=== PATIENT | male | born 1955 | race Caucasian/White ===

== ENCOUNTER → 2016-07-21 | Outpatient (CLI) | payer OTHER ==
[2016-02-01 14:25] VITALS: BP 134/88
[~2016-07-21] MED LIST: AMIO200T2 PO; AMLO5TAB2 PO; APIX5TAB PO; ASPI-482 PO; ASPI325T70 PO; ATOR20TA58 PO; CONTRAST GIVEN MC PRN; DILT240C2 PO; DILT240C32 PO; DOXY100T PO; FLEC100T PO; IOHEXOL 240 MG/ML 50ML VIAL. PO ONE; IOHEXOL 300 MG/ML 75 ML VIAL IV ONE; SOTA80TA PO
--- NOTE | 2016-07-21 08:31 | RAD ---
CT of the abdomen and pelvis with contrast, 07/21/2016: History: Right lower quadrant/groin pain Multidetector CT imaging was performed following oral and IV administration of contrast. No hepatic abnormality is detected. The gallbladder is unremarkable. The pancreas shows no abnormality. The spleen is of normal size. It contains calcified granulomata. No renal or adrenal abnormality is detected. There is minimal aortoiliac calcific plaquing without evidence of aneurysm. No abdominal or pelvic adenopathy is seen. There are surgical sutures related to the distal sigmoid colon. The bowel loops are not dilated. A portion of the appendix is visualized and it is unremarkable. No pericecal inflammatory process is seen. No free fluid or free air is evident in the abdomen or pelvis. There is a tiny anterior abdominal wall fascial defect at the midline just superior to the level of the umbilicus containing only fat. There has been a previous lower lumbar spinal fusion with instrumentation from L4 through S1. There has been previous surgery at the left hip with a surgical plate and screws related to the iliac bone in the supra-acetabular region. IMPRESSION: No acute abdominal abnormality is detected.
== END | disposition home or self-care (01) ==
LOC: CT 06:57
PROVIDERS: ATTEND Surgery
DX: R10.30 Lower abdominal pain, unspecified (principal); Z98.1 Arthrodesis status
CPT/HCPCS: 74177; Q9966; Q9967

== ENCOUNTER → 2017-01-12 | Outpatient (CLI) | payer OTHER ==
[2016-02-01 14:25] VITALS: BP 134/88
[~2017-01-12] MED LIST changes: -CONTRAST GIVEN MC PRN; -IOHEXOL 240 MG/ML 50ML VIAL. PO ONE; -IOHEXOL 300 MG/ML 75 ML VIAL IV ONE; -SOTA80TA PO; +SOTA80TA48 PO
--- NOTE | 2017-01-12 14:10 | KCIC ---
CT of the left shoulder without contrast. Indication: Pain and limited range of motion.. Technique: Contiguous axial images are obtained through the . Multiplanar reformatted images are also obtained. Comparison study: None available. Findings: No evidence of acute fracture or aggressive bone destruction. Primary osteoarthritis at the acromioclavicular joint with small to moderate undersurface osteophyte. Small subacromial spur. There is enthesophyte formation at the greater tuberosity likely due to chronic rotator cuff arthropathy. No definite soft tissue abnormality. The visualized left lung appears clear. IMPRESSION: 1. Acromioclavicular joint primary osteoarthritis. 2. No acute findings.. Electronically signed by: Abdiel Alba MD (01/12/2017 2:07 PM) [facility]
== END | disposition home or self-care (01) ==
LOC: KCIC CT 12:22
PROVIDERS: ATTEND General Practice
DX: M19.012 Primary osteoarthritis, left shoulder (principal)
CPT/HCPCS: 73200

== ENCOUNTER 2017-01-28 05:55 | Emergency (ER) | payer OTHER ==
[~2017-01-28] VITALS: Ht 190.5 cm; Wt 115.7 kg
[2017-01-28] MEDS ORDERED: BACI28.34 TP (06:24)
--- NOTE | 2017-01-28 06:24 | PHYS DOC ---
Past Medical History Past Medical History: A-Fib, High Cholesterol, Hypertension Past Surgical History: No Surgical History Additional Past Surgical Histo: denies Alcohol Use: Occasionally Drug Use: None Adult General Chief Complaint Chief Complaint: THUMB HPI HPI Patient is a pleasant 61-year-old male history of hypertension, hypercholesterolemia, chronic atrial fibrillation and pacemaker placement who fell from a standing position while at work tripping on a cord. He landed on something sharp injuring his left thumb. On the dorsum of his hand he suffered a stable laceration with some mild bleeding still continued despite direct pressure. Patient denies the major pain in his thumb other than a dull ache to of 10 no numbness and tingling, no foreign body sensation, no problems with range of motion. Patient is right-hand dominant and the injury occurred about 20 minutes prior to arrival. Patient tetanus shot is not up-to-date. Review of Systems Review of Systems Constitutional: Denies fever or chills [] Eyes: Denies change in visual acuity, redness, or eye pain [] HENT: Denies nasal congestion or sore throat [] Respiratory: Denies cough or shortness of breath [] Cardiovascular: No additional information not addressed in HPI [] GI: Denies abdominal pain, nausea, vomiting, bloody stools or diarrhea [] : Denies dysuria or hematuria [] Musculoskeletal: Complains primarily of right thumb pain Integument: Denies rash or skin lesions [] Neurologic: Denies headache, focal weakness or sensory changes [] Current Medications Current Medications Current Medications Medications (Trade) Dose Ordered Sig/Dani Start Time Stop Time Status Last Admin Dose Admin Diphtheria/ Tetanus/Acell Pertussis (Boostrix) 0.5 ml ONCE ONCE 01/28/17 06:30 01/28/17 06:31 DC 01/28/17 06:39 0.5 ML Lidocaine HCl 20 ml 1X ONCE 01/28/17 06:30 01/28/17 06:31 DC 01/28/17 06:30 20 ML Allergies Allergies Allergies Coded Allergies Type Severity Reaction Last Updated Verified No Known Drug Allergies 10/30/15 No Physical Exam Physical Exam Vital signs recorded at this time within normal limits blood pressure is elevated. Constitutional: Well developed, well nourished, no acute distress, non-toxic appearance. [] HENT: Normocephalic, atraumatic, bilateral external ears normal, oropharynx moist, no oral exudates, nose normal. [] Eyes: PERRLA, EOMI, conjunctiva normal, no discharge. [] Cardiovascular:Heart rate regular rhythm, no murmur [] Lungs & Thorax: Bilateral breath sounds clear to auscultation [] Skin: Warm, dry, no erythema, no rash. [] Patient demonstrates a small stated laceration measuring was admitted about 0.5 cm in a crisscross X-shaped on the dorsum of the distal phalanx of the right thumb. There is no active foreign body noted through full range of motion no weakness to extension and flexion at the PIP or MCP of that thumb. Extremities: No tenderness, no cyanosis, no clubbing, ROM intact, no edema. [] Neurologic: Alert and oriented X 3, normal motor function, normal sensory function, no focal deficits noted. [] Current Patient Data Vital Signs Vital Signs Date Time Temp Pulse Resp B/P (MAP) Pulse Ox O2 Delivery O2 Flow Rate FiO2 01/28/17 06:09 97.5 70 18 97 Room Air 97.5 EKG EKG [] Radiology/Procedures Radiology/Procedures [] Course & Med Decision Making Course & Med Decision Making Pertinent Labs and Imaging studies reviewed. (See chart for details) Plan is x-ray the hand shows no foreign body in the thumb. Update his tetanus shot and then repaired the laceration if there is no foreign body with Ethilon suture. Procedure note: Right thumb laceration Edna nature measuring a total of 1.6 cm. Patient has a T-shaped laceration to the dorsum of the thumb measuring over a length of 1.6 cm. Verbal consent was given by family at the bedside. Patient had his wound dressed initially with a gauze was removed. Bleeding was well- controlled. Patient had 3 mL of 2% lidocaine placed with in the wound itself. Patient had 250 mL of normal saline wash to the wound. Patient's wound was then dressed Hibiclens. Patient then had x-ray done of his hand to ensure no foreign body noted. At that point patient had his laceration repaired with 4-0 silk thread. He had 12 interrupted sutures placed to help reduce the tension of the wound as the wound edges were everted. We had mild wound debridement and relatively decent alignment of the wound edges. Patient had minimal bleeding tolerated the procedure well. Patient is no foreign body sensation and range of motion and strength are intact. Patient had the wound dressed with bacitracin ointment and the dressed with tube gauze. Patient was given a discharge instructions along with reasons to return. X-ray of the hand [address] Quick. Of the right hand demonstrates no foreign body no fracture. [] Dragon Disclaimer Dragon Disclaimer This electronic medical record was generated, in whole or in part, using a voice recognition dictation system. Departure Departure Impression: Primary Impression: Laceration of thumb Disposition: 01 HOME, SELF-CARE Condition: STABLE Referrals: RYLAND VARGAS DO (PCP) Patient Instructions: Laceration Care, Adult Additional Instructions: Please return for any increasing pain, bleeding has not stopped despite wound management, if you have any questions or concerns, or signs of infection around the wound. Please follow-up your primary care doctor in 14 days and the sutures removed. Scripts Bacitracin/Polymyxin B Sulfate (POLYSPORIN TOPICAL OINT) 28.3 Gm Oint...g. 1 DONALD TP TID for WOUND CARE, #1 TUBE DIRECTED BY PHYSICIAN Prov: USMAN QUICK MD 01/28/17 USMAN QUICK MD Jan 28, 2017 06:24
[2017-01-28] MEDS ORDERED: DIPHTH,PERTUSS(ACELL),TET TOX 0.5 ML DISP.SYRIN. VAX IM ONE (06:30)
[2017-01-28] MEDS ORDERED: LIDOCAINE 2% 20 ML VIAL. IJ ONE (06:30)
--- NOTE | 2017-01-28 07:29 | RAD ---
Indication laceration to the thumb. AP oblique and lateral views of the right hand were obtained. No acute bony abnormality is seen. There are some mild degenerative changes involving the hand. IMPRESSION: No acute bony finding
[2017-01-28 07:30] VITALS: BP 112/70
[2017-01-28] MEDS ORDERED: BACITRACIN TOPICAL OINT 14GM TUBE. TP ONE (07:45)
== END 2017-01-28 07:33 | disposition home or self-care (01) ==
LOC: ER 05:55
DX: S61.011A Laceration without foreign body of right thumb without damage to nail, initial encounter (principal); I48.2 Chronic atrial fibrillation; I10 Essential (primary) hypertension; E78.00 Pure hypercholesterolemia, unspecified; Z95.0 Presence of cardiac pacemaker; W01.0XXA Fall on same level from slipping, tripping and stumbling without subsequent striking against object, initial encounter; Y93.89 Activity, other specified; Y99.8 Other external cause status; Y92.89 Other specified places as the place of occurrence of the external cause
CPT/HCPCS: 12001; 73130; 90471; 90715; 99284-25; J2001

== ENCOUNTER → 2017-02-02 | Outpatient (CLI) | payer OTHER ==
[2017-01-28 07:30] VITALS: BP 112/70
[~2017-02-02] MED LIST changes: +BACI28.34 TP
--- NOTE | 2017-02-02 10:25 | RAD ---
APPROVED REPORT Patient Location: OUT-PATIENT Laterality:Bilateral Indications Dizziness and Vertigo Doppler Spectral Velocity Analysis Right Left pCCA 74/23 cm/spCCA 91/30 cm/s mCCA 75/26 cm/smCCA 71/25 cm/s dCCA 74/27 cm/sdCCA 69/26 cm/s Bulb 55/18 cm/sBulb 44/17 cm/s ECA 66/ cm/sECA 79/ cm/s pICA 54/26 cm/spICA 37/17 cm/s Su 63/24 cm/smICA 61/26 cm/s dICA 63/32 cm/sdICA 56/26 cm/s Vert. 41/ cm/sVert. 28/ cm/s Subcl. 85/ cm/sSubcl. 68/ cm/s ICA/CCA 0.84ICA/CCA 0.67 Findings Devlin scale images of the bilateral common carotid, internal carotid and external carotid arterial sys tems reveal minimal atherosclerotic plaque in a circumferential manner. Spectral waveforms and color Doppler bilaterally revealed normal velocities and color flow. No significant velocity acceleration i s noted. Normal ICA to CCA ratios are noted. Normal antegrade vertebral velocities. Critical Notification Critical Value: No <Conclusion> No significant bilateral carotid arterial disease.
--- NOTE | 2017-02-02 12:45 | CARD ---
APPROVED REPORT EXAM: Two-dimensional and M-mode echocardiogram with Doppler and color Doppler. Other Information Quality : Average Rhythm : NSR INDICATION Dizziness and Vertigo 2D DIMENSIONS Left Atrium(2D)3.6 (1.6-4.0cm)IVSd1.6 (0.7-1.1cm) Aortic Root(2D)3.6 (2.0-3.7cm)LVDd4.9 (3.9-5.9cm) LVOT Diameter2.7 (1.8-2.4cm)PWd1.6 (0.7-1.1cm) LVDs3.7 (2.5-4.0cm)FS (%) 25.5 % SV57.6 mlLVEF(%)50.1 (>50%) Aortic Valve AoV Peak Toy.87.6cm/sAoV VTI14.8cm AO Peak GR.3.1mmHgLVOT Peak Toy.88.1cm/s AO Mean GR.2mmHgAVA (VMAX)5.64cm2 Mitral Valve MV E Zyhcafsa31.1cm/sMV DECEL XVSF589ys MV A Mfcohhod85.3cm/sMV WWW73mu E/A Ratio0.8MV A Ryncnetg169gf MVA (PHT)3.86cm2 Tricuspid Valve TR P. Dlqmmjjg061by/sRAP RGVASWCN5hiZi TR Peak Gr.85upDrEONW86drFn LEFT VENTRICLE The Left Ventricle is borderline dilated. There is mild concentric left ventricular hypertrophy. Left ventricle systolic function is low normal. The Ejection Fraction is estimated at 50%. Tissue Doppler imaging reveals mild left ventricular diastolic dysfunction. Transmitral Doppler flow pattern is Gra de I-abnormal relaxation pattern. There is no ventricular septal defect visualized. RIGHT VENTRICLE The right ventricle is normal size. The right ventricular systolic function is normal. ATRIA The left atrium size is normal. The right atrium size is normal. The interatrial septum is intact wit h no evidence for an atrial septal defect or patent foramen ovale as noted on 2-D or Doppler imaging. AORTIC VALVE The aortic valve is normal in structure and function. The aortic valve is trileaflet. Doppler and Col or Flow revealed no significant aortic regurgitation. There is no significant aortic valvular stenosi s. MITRAL VALVE The mitral valve is normal in structure and function. There is no mitral valve stenosis. Doppler and Color Flow revealed trace mitral regurgitation. TRICUSPID VALVE The tricuspid valve is normal in structure and function. Doppler and Color Flow revealed trace tricus pid regurgitation. The PA pressure was estimated at 21 mmHg. There is no tricuspid valve stenosis. PULMONIC VALVE The pulmonic valve is not well visualized. Doppler and Color Flow revealed no pulmonic valvular regur gitation. There is no pulmonic valvular stenosis. GREAT VESSELS The aortic root is normal in size. The ascending aorta is mildly dilated. Measuring 3.8cm. Pulmonary vein flow not well visualized. The IVC is normal in size and collapses >50% with inspiration. PERICARDIAL EFFUSION There is no evidence of significant pericardial effusion. Critical Notification Critical Value: No <Conclusion> The Left Ventricle is borderline dilated. Left ventricle systolic function is low normal. The Ejection Fraction is estimated at 50%. There is mild concentric left ventricular hypertrophy. There is no significant aortic valvular stenosis. Doppler and Color Flow revealed trace mitral regurgitation. Doppler and Color Flow revealed trace tricuspid regurgitation. The PA pressure was estimated at 21 mmHg. The ascending aorta is mildly dilated. Measuring 3.8cm.
== END | disposition home or self-care (01) ==
LOC: US 06:53
PROVIDERS: ATTEND Internal Medicine Cardiovascular Disease
DX: I08.1 Rheumatic disorders of both mitral and tricuspid valves (principal); R42 Dizziness and giddiness
CPT/HCPCS: 93306; 93880

== ENCOUNTER → 2017-10-05 | Outpatient (CLI) | payer OTHER ==
[2017-10-05] MEDS: GADOBUTROL 10 MMOL/10 ML VIAL IV (09:45)
== END | disposition home or self-care (01) ==
LOC: MRI 08:32
DX: M25.78 Osteophyte, vertebrae (principal); M48.061 Spinal stenosis, lumbar region without neurogenic claudication; I10 Essential (primary) hypertension; E78.00 Pure hypercholesterolemia, unspecified
CPT/HCPCS: 72158; A9585

== ENCOUNTER → 2017-10-15 | Outpatient (CLI) | payer OTHER | END | disposition home or self-care (01) | LOC: NM 09:17 | DX: S34.11 Complete lesion of lumbar spinal cord (principal); I10 Essential (primary) hypertension; E78.5 Hyperlipidemia, unspecified; E78.00 Pure hypercholesterolemia, unspecified; X58.XXXD Exposure to other specified factors, subsequent encounter | CPT/HCPCS: 78306; 96374; A9503 ==

== ENCOUNTER → 2017-11-23 | Outpatient (CLI) | payer OTHER ==
[2017-11-23] MEDS: LIDOCAINE WITH 8.4% SOD BICARB 3 ML DISP.SYRIN. INJ (09:15)
[2017-11-23] MEDS: IOHEXOL 180 MG/ML 10 ML VIAL. EPI (09:15)
== END | disposition home or self-care (01) ==
LOC: RAD 09:14
DX: M54.16 Radiculopathy, lumbar region (principal); Z98.1 Arthrodesis status
CPT/HCPCS: 72132; 72265; Q9965

== ENCOUNTER → 2017-11-26 | Outpatient (CLI) | payer OTHER ==
[~2017-11-26] MED LIST changes: -AMIO200T2 PO; -AMLO5TAB2 PO; -APIX5TAB PO; -ASPI-482 PO; -ASPI325T70 PO; -ATOR20TA58 PO; -BACI28.34 TP; -DILT240C2 PO; -DILT240C32 PO; -DOXY100T PO; -FLEC100T PO; +IOHEXOL 180 MG/ML 10 ML VIAL.; +LIDOCAINE 1% PF 2 ML VIAL.; -SOTA80TA48 PO; +methylPREDNISolone ACETATE 40 MG/ML VIAL.; +methylPREDNISolone ACETATE 80 MG/ML VIAL.
== END | disposition home or self-care (01) ==
LOC: PNCL 08:10
DX: M51.16 Intervertebral disc disorders with radiculopathy, lumbar region (principal); M96.1 Postlaminectomy syndrome, not elsewhere classified; I10 Essential (primary) hypertension; E78.00 Pure hypercholesterolemia, unspecified; M19.90 Unspecified osteoarthritis, unspecified site; I48.91 Unspecified atrial fibrillation; Z95.0 Presence of cardiac pacemaker; Z96.642 Presence of left artificial hip joint; Z98.890 Other specified postprocedural states; Z79.82 Long term (current) use of aspirin; Z79.899 Other long term (current) drug therapy; Z82.49 Family history of ischemic heart disease and other diseases of the circulatory system; Z72.89 Other problems related to lifestyle; Z90.49 Acquired absence of other specified parts of digestive tract; I34.0 Nonrheumatic mitral (valve) insufficiency; Z79.01 Long term (current) use of anticoagulants
CPT/HCPCS: 62323; J1030; J1040; Q9965

== ENCOUNTER → 2017-12-18 | Outpatient (CLI) | payer OTHER | LOC: PNCL 07:32 | DX: M51.16 Intervertebral disc disorders with radiculopathy, lumbar region (principal); M96.1 Postlaminectomy syndrome, not elsewhere classified; E78.00 Pure hypercholesterolemia, unspecified; I48.91 Unspecified atrial fibrillation; I10 Essential (primary) hypertension; Z87.39 Personal history of other diseases of the musculoskeletal system and connective tissue; Z98.890 Other specified postprocedural states; Z95.0 Presence of cardiac pacemaker; Z72.89 Other problems related to lifestyle; Z79.82 Long term (current) use of aspirin | CPT/HCPCS: 62323; 73521; J1030; J1040; Q9965 ==

== ENCOUNTER → 2018-01-01 | Outpatient (CLI) | payer OTHER ==
[~2018-01-01] MED LIST changes: +BUPIVACAINE MPF 0.25% 10 ML VIAL.; -methylPREDNISolone ACETATE 40 MG/ML VIAL.
== END | disposition home or self-care (01) ==
LOC: PNCL 07:35
DX: M16.12 Unilateral primary osteoarthritis, left hip (principal); M51.16 Intervertebral disc disorders with radiculopathy, lumbar region; M96.1 Postlaminectomy syndrome, not elsewhere classified; I34.0 Nonrheumatic mitral (valve) insufficiency; E78.00 Pure hypercholesterolemia, unspecified; I48.91 Unspecified atrial fibrillation; Z95.0 Presence of cardiac pacemaker; Z79.01 Long term (current) use of anticoagulants; Z90.49 Acquired absence of other specified parts of digestive tract; Z72.89 Other problems related to lifestyle; I10 Essential (primary) hypertension; Z79.82 Long term (current) use of aspirin; Z82.49 Family history of ischemic heart disease and other diseases of the circulatory system; Z87.39 Personal history of other diseases of the musculoskeletal system and connective tissue; Z96.642 Presence of left artificial hip joint; Z98.1 Arthrodesis status; Z98.890 Other specified postprocedural states
CPT/HCPCS: 20610; 77002; J1040; J3490; Q9965

== ENCOUNTER → 2018-01-25 | Outpatient (CLI) | payer OTHER ==
[2018-01-25 09:59] LABS: ADD MAN DIFF? NO
[2018-01-25 10:11] LABS: BASO % 1 % (0-3); EOS # 0.1 x10^3/uL (0.0-0.7); EOS % 3 % (0-3); HEMATOCRIT 40.8 % (39.0-53.0); HEMOGLOBIN 14.1 g/dL (13.0-17.5); LYMPH % 35 % (24-48); MEAN CORPUSCULAR HEMOGLOBIN 30 pg (25-35); MEAN CORPUSCULAR HGB CONC 35 g/dL (31-37); MEAN CORPUSCULAR VOLUME 86 fL (79-100); MONO # 0.5 x10^3/uL (0.0-1.1); MONO % 8 % (0-9); NEUT % 53 % (31-73); PLATELET COUNT 229 x10^3/uL (140-400); RED BLOOD COUNT 4.77 x10^6/uL (4.30-5.70); RED CELL DISTRIBUTION WIDTH 15.2 % (11.5-14.5); WHITE BLOOD COUNT 5.7 x10^3/uL (4.0-11.0)
[2018-01-25 10:26] LABS: ALBUMIN 3.5 g/dL (3.4-5.0); ANION GAP 9 (6-14); BLOOD UREA NITROGEN 11 mg/dL (8-26); CALCIUM 9.4 mg/dL (8.5-10.1); CARBON DIOXIDE 29 mmol/L (21-32); CHLORIDE 104 mmol/L (98-107); CREATININE 0.7 mg/dL (0.7-1.3); GFR 113.5; GLUCOSE 88 mg/dL (70-99); POTASSIUM 3.7 mmol/L (3.5-5.1); SODIUM 142 mmol/L (136-145)
[2018-01-25 10:28] LABS: INR 0.9 (0.8-1.1); PARTIAL THROMBOPLASTIN TIME 23 SEC (24-38)
[2018-01-25 11:32] LABS: SEDIMENTATION RATE 25 (0-15)
[2018-01-25 13:10] LABS: BILIRUBIN,URINE SMALL (NEG); CLARITY,URINE CLEAR; COLOR,URINE AMBER; GLUCOSE,URINE NEGATIVE (NEG); NITRITE,URINE NEGATIVE (NEG); PROTEIN,URINE NEGATIVE (NEG-TRACE); UROBILINOGEN,URINE 0.2 mg/dL (0.2 mg/dL)
[2018-01-25 13:20] LABS: SQUAMOUS EPITHELIAL CELL,UR FEW /LPF
[2018-01-25 13:21] LABS: BACTERIA,URINE FEW /HPF (0-FEW); RBC,URINE 0 /HPF (0-2); WBC,URINE OCC /HPF (0-4)
[2018-01-25 23:11] LABS: MRSA BY PCR Negative (Negative)
== END | disposition home or self-care (01) ==
LOC: SURGPAT 14:00
DX: R94.31 Abnormal electrocardiogram [ECG] [EKG] (principal); I10 Essential (primary) hypertension; E78.5 Hyperlipidemia, unspecified; Z79.899 Other long term (current) drug therapy
CPT/HCPCS: 36415; 71046; 80048; 81001; 82040; 85025; 85610; 85651; 85730; 87641; 93005

== ENCOUNTER 2018-02-08 06:01 | Inpatient (IN) | payer OTHER ==
[2018-02-08] VITALS (11 sets, daily range): BP systolic 116–146; BP diastolic 70–103
[~2018-02-08] VITALS: Ht 190.5 cm; Wt 120.2 kg
[~2018-02-08 06:01] MED LIST changes: +AMIO200T4 PO; +AMLO5TAB2 PO; +APIX5TAB PO; +ASPI-482 PO; +ASPI325T70 PO; +ATOR20TA58 PO; +BACI28.34 TP; -BUPIVACAINE MPF 0.25% 10 ML VIAL.; +CHOL200074 PO; +DILT240C2 PO; +DILT240C32 PO; +DOXY100T PO; +FLEC100T PO; +HYDROcodone/APAP 7.5/325MG 1 TAB TABLET PO PRN; -IOHEXOL 180 MG/ML 10 ML VIAL.; -LIDOCAINE 1% PF 2 ML VIAL.; +LISI10TA2 PO; +MELA3TAB2 PO; +MELOXICAM 7.5 MG TABLET PO PRN; +SOTA80TA48 PO; +TRANEXAMIC ACID 1,000 MG in IV NS 50ML -- 1ST BAG INJ ONE; -methylPREDNISolone ACETATE 80 MG/ML VIAL.
[2018-02-08] MEDS ORDERED: IV RINGERS,LACTATED 1000ML 1,000 ML IV SCH (07:00)
[2018-02-08] MEDS ORDERED: LIDOCAINE 1% PF 2 ML VIAL. ID PRN (07:00)
[2018-02-08] MEDS ORDERED: HYDROmorphone 2 MG/ML VIAL IV PRN (07:00)
[2018-02-08] MEDS ORDERED: fentaNYL PF VIAL 100 MCG/2 ML VIAL IV PRN ×3 (07:00→07:15)
[2018-02-08] MEDS ORDERED: PROCHLORPERAZINE 10 MG/2 ML VIAL. IV PRN ×2 (07:00→07:15)
[2018-02-08] MEDS ORDERED: ROCURONIUM 50 MG/5 ML VIAL. ONE (07:09)
[2018-02-08] MEDS ORDERED: PROPOFOL 20 ML IV ONE (07:09)
[2018-02-08] MEDS ORDERED: FAMOTIDINE 20 MG/2 ML VIAL ONE (07:10)
[2018-02-08] MEDS ORDERED: LIDOCAINE 2% PF Vial for OR 5 ML VIAL. ONE (07:10)
[2018-02-08] MEDS ORDERED: ONDANSETRON PF 4 MG/2 ML VIAL. ONE (07:10)
[2018-02-08] MEDS ORDERED: DEXAMETHASONE SOD PHOS 20 MG/5 ML VIAL. ONE (07:10)
[2018-02-08] MEDS ORDERED: PROCHLORPERAZINE 5 MG TABLET. PO PRN (07:15)
[2018-02-08] MEDS ORDERED: MORPHINE SULFATE 2 MG/ML VIAL. IV PRN (07:15)
[2018-02-08] MEDS ORDERED: MORPHINE SULFATE 10 MG/ML VIAL. IV PRN (07:15)
[2018-02-08] MEDS ORDERED: ACETAMINOPHEN 325 MG TABLET. PO PRN (07:15)
[2018-02-08] MEDS ORDERED: MORPHINE SULFATE 4 MG/ML VIAL. IV PRN ×2 (07:15)
[2018-02-08] MEDS ORDERED: traMADol 50 MG TABLET PO PRN ×2 (07:15)
[2018-02-08] MEDS ORDERED: diphenhydrAMINE 50 MG/ML VIAL IV PRN (07:15)
[2018-02-08] MEDS ORDERED: HYDROcodone/APAP 7.5/325MG 1 TAB TABLET PO PRN (07:15)
[2018-02-08] MEDS ORDERED: 0.9 % SODIUM CHLORIDE 10 ML DISP.SYRIN. IV PRN (07:15)
[2018-02-08] MEDS ORDERED: METOCLOPRAMIDE HCL 10 MG/2 ML VIAL. IV PRN (07:15)
[2018-02-08] MEDS ORDERED: CALCIUM CARBONATE 500 MG TAB.CHEW PO PRN (07:15)
[2018-02-08] MEDS ORDERED: DEXTROSE 50% 25 GM / 50ML DISP.SYRIN. IV PRN (07:15)
[2018-02-08] MEDS: HYDROcodone/APAP 10/325 1 TAB TABLET PO PRN ×2 (07:25→20:16)
[2018-02-08 07:55] LABS: PROTHROMBIN TIME PATIENT 13.1 SEC (11.7-14.0)
[2018-02-08] MEDS ORDERED: TRANEXAMIC ACID 1,000 MG in IV NS 50ML -- 2ND BAG INJ ONE (08:00)
[2018-02-08] MEDS ORDERED: fentaNYL PF VIAL 100 MCG/2 ML VIAL ONE ×2 (08:12→10:51)
[2018-02-08] MEDS: TV=100ml MORPHINE 5 MG, KETOROLAC 30 MG, ROPIVacaine 0.5% PF 60 ML, EPINEPH... INT ART ONE ×10 (08:48→09:35)
[2018-02-08] MEDS ORDERED: SEVOFLURANE > 120 MINUTES. IH ONE (09:20)
[2018-02-08] MEDS ORDERED: NEOSTIGMINE METHYLSULFATE 5 MG/5 ML SYRINGE. ONE (09:28)
[2018-02-08] MEDS ORDERED: GLYCOPYRROLATE 1 MG/5 ML VIAL. ONE (09:28)
[2018-02-08] MEDS ORDERED: MORPHINE SULFATE 2 MG/ML VIAL. ONE ×3 (10:31→11:34)
--- NOTE | 2018-02-08 10:35 | PDOC4 ---
Operative Note Operative Note Date of procedure: 02/08/2018 Surgeon: Desean Carver Supervisor Fish Bait Processing: Basilio Parker APRN Preoperative diagnosis: Advanced secondary, posttraumatic, left hip degenerative joint disease Postoperative diagnosis: Same Procedure performed: Left total hip arthroplasty Anesthesia: Gen. Competitions: None Blood loss: 300 mL Findings: Advanced degenerative joint disease of left hip Components inserted Tatum and nephew anthology size 12 standard offset femoral component with a +8 40 mm Oxinium femoral head and a 20 posteriorly directed elevated acetabular polyethylene liner Reason for procedure: Patient is very present 62-year-old gentleman underwent ORIF left acetabulum decades ago. He has had severe progressive pain that has failed conservative therapies including intra-articular injections, rehabilitation, anti-inflammatories and after discussion of the risks, benefits , and alternatives to the above surgery he wished to proceed. Description of procedure: Patient was greeted in the preoperative area by myself for the correct extremity was verified and marked. He was taken to the operative suite and his robotic started as he was brought back. Once in the operating room, he was transferred gently supine to the operating room table and had successful induction of a general anesthetic and secured the bed with all pressure points padded, we used our hip positioning device. Bony prominences were well-padded and we use an axillary roll. I then appreciated his leg lengths. We then proceeded to prep and drape left lower extremity and hip in our usual sterile fashion including an Ioban Nocona. I then incised skin through his prior acetabular exposure incision. I dissected subcutaneous tissue until I encountered the fascia cordell of the thigh and the gluteus mica and then incised this in line with the skin incision. He had a lot of adherent fibrotic tissue. I swept aside some of this and some of the bursal tissue posteriorly with a lap sponge to identify the piriformis and I took this down and tagged for later repair. I then incised his hip capsule which was quite adherent to his femoral neck circumferentially. I elevated this with electrocautery. We were then able to dislocate his hip after incising his hip capsule in a T-type incision. I then palpated and marked reproducible landmarks at his greater and lesser trochanters and femoral head with electrocautery and measured offset and leg length. I then palpated and marked 1 cm proximal to his lesser trochanter for an made my femoral neck cut and then delivered the femoral head from the operative field. I then inspected his acetabulum and noted the degenerative arthritis and osteophytes. I took some osteophytes down anteriorly and posteriorly. I then placed my anterior and posterior acetabular retractors. Identified his transverse acetabular ligament. I then began reaming and reamed up to a 61 which gave a good fit. I did encounter a little bit of 1 screw at this point and I used my trial acetabular shell and impacted this in position which gave an excellent fit. Therefore I elected to not remove any hardware and impacted a 62 acetabular liner into position referencing the crossbar attachment and the transverse acetabular ligament. I ensured that this fully seated. Prior to impacted my cup, I irrigated the operative field out. I then placed 2 screws into the posterior column. I then placed and seated my acetabular liner with the elevation directed posteriorly, ensuring that it fully engaged and locked in place under circumferential visual inspection. I then removed my acetabular retractors and repositioned the leg to deliver the proximal femur the operative field and used a proximal femoral elevator. I then used my gayie cutting osteotome followed by my lateralizing reamer followed by my canal finder. After this I began broaching and broached up to size 11 and impacted this into position. I then trialed various head and neck sizes and felt that he was still a little bit too short and opted to remove the 11 stem and broach and then impacted my size 12 stem into position. This gave him better leg length. I then trialed the plus form +8 and felt the +8 gave the best range of motion, stability and leg length. I then removed or dislocated the hip again and irrigated the operative field out thoroughly again. I then washed and dried the Philippe taper region and impacted my +8 Oxinium head into position and reduced the hip. No impingement, good range of motion, his leg length was improved. After this, injected my periarticular mixture in the obdulia- incisional soft tissues. I then closed capsule with simple interrupted #2 Ethibond and repaired piriformis through drill holes. I then took out my Charnley retractor and close fascia with running #2 Quill. Prior to wound closure all counts were correct 2. Inverted interrupted 2-0 Vicryl in a multilayered fashion was used for subcutaneous tissue and running 4-0 Monocryl in a subcuticular fashion was used for skin. The leg was cleansed and dried and our incisional wound vacuum was applied. Surgery was well tolerated by the patient. No competitions. At the conclusion of the surgery, he was laid supine and transferred gently supine to the hospital bed and taken to PACU in a stable and x-ray condition. Postoperative plan is admit of the joint Center where he will see DVT and antibiotic prophylaxis as well as likely IV pain medicine. He will start his rehabilitation as well. DESEAN CARVER II, MD Feb 08, 2018 10:35
[2018-02-08] MEDS: fentaNYL PF VIAL 100 MCG/2 ML VIAL IV PRN ×4 (10:36→11:12)
[2018-02-08] MEDS: MORPHINE SULFATE 2 MG/ML VIAL. IV PRN ×6 (10:47→12:02)
--- NOTE | 2018-02-08 11:30 | RAD ---
EXAM: Pelvis and left hip, 2 views HISTORY: Arthroplasty. COMPARISON: 12/18/2017 FINDINGS: A frontal view of the pelvis and frog-leg view the left hip are obtained. There is a left hip arthroplasty in expected position. There is a left acetabular internal fixation plate and screws. There is left hip soft tissue gas due to recent surgery. There is a suspected small amount of heterotopic ossification along the lateral acetabulum. There is instrumented fusion at the visualized lower lumbar levels. IMPRESSION: Left hip arthroplasty in expected position. Electronically signed by: Khushbu Patel MD (02/08/2018 11:26 AM) [facility]
[2018-02-08] MEDS: IV DEXTROSE 5 %-0.45 % NACL 1,000 ML IV SCH (12:38)
[2018-02-08] MEDS: LISINOPRIL 10 MG TABLET PO SCH (14:30)
[2018-02-08] MEDS ORDERED: WARFARIN 7.5 MG TABLET. PO ONE (16:00)
[2018-02-08] MEDS: FERROUS SULFATE 325 MG TABLET. PO SCH (16:17)
[2018-02-08] MEDS ORDERED: NON FORMULARY ITEM (Melatonin 10 MG) PO SCH (21:00)
[2018-02-08] MEDS: CELECOXIB 100 MG CAPSULE. PO SCH (21:01)
[2018-02-08] MEDS: ATORVASTATIN CALCIUM 20 MG TABLET PO SCH (21:01)
[2018-02-08] MEDS: SOTALOL 80 MG TABLET. PO SCH (21:05)
[2018-02-08] MEDS: ZOLPIDEM 5 MG TABLET. PO PRN (22:50)
[2018-02-08] MEDS: oxyCODONE/APAP 5/325 1 TAB TABLET PO PRN (23:36)
[2018-02-09] MEDS: IV DEXTROSE 5 %-0.45 % NACL 1,000 ML IV SCH (03:04)
[2018-02-09 03:15] VITALS: BP 133/81
[2018-02-09] MEDS: oxyCODONE/APAP 5/325 1 TAB TABLET PO PRN (04:02)
[2018-02-09 05:50] LABS: HEMATOCRIT 32.9 % (39.0-53.0); HEMOGLOBIN 11.5 g/dL (13.0-17.5)
[2018-02-09 05:57] LABS: PROTHROMBIN TIME PATIENT 15.4 SEC (11.7-14.0)
[2018-02-09] MEDS ORDERED: MAGNESIUM HYDROXIDE 2,400 MG/30 ML ORAL.SUSP. PO PRN (06:00)
[2018-02-09 06:20] VITALS: BP 140/89
[2018-02-09] MEDS: oxyCODONE/APAP 7.5/325 1 TAB TABLET PO PRN ×4 (07:14→20:38)
[2018-02-09] MEDS: FERROUS SULFATE 325 MG TABLET. PO SCH ×2 (07:14→16:20)
[2018-02-09] MEDS: SENNOSIDES/DOCUSATE 8.6/50MG TABLET. PO SCH (08:38)
[2018-02-09] MEDS: CHOLECALCIFEROL (VITAMIN D3) 1,000 UNIT TABLET PO SCH (08:38)
[2018-02-09] MEDS: MULTIVITAMIN with MINERAL TABLET. PO SCH (08:38)
[2018-02-09 08:39] VITALS: BP 121/79
[2018-02-09] MEDS: CELECOXIB 100 MG CAPSULE. PO SCH ×2 (08:39→20:36)
[2018-02-09] MEDS: SOTALOL 80 MG TABLET. PO SCH ×2 (08:41→20:37)
[2018-02-09] MEDS: LISINOPRIL 10 MG TABLET PO SCH (08:42)
[2018-02-09] MEDS ORDERED: LISINOPRIL 10 MG TABLET PO SCH (09:00)
--- NOTE | 2018-02-09 09:04 | DISCH ---
DISCHARGE INSTRUCTIONS Condition on Discharge Condition on Discharge: Stable Activity After Discharge Activity Instructions for Disc: Activity as tolerated Lifting Instructions after Dis: Add. restrict see below Exercise Instruction after Dis: Progress as tolerated Driving Instructions after Dis: Do not drive, Do not drive today Weight Bearing Status after Di: No restrictions, As tolerated Diet after Discharge Diet after Discharge: Cardiac, Regular Wound Incision Care Wound/Incision Care: Ice to area for comfort, Keep wound/cast CDI, Do not change dressing Checks after Discharge Checks after discharge: Check blood press - daily Contacting the DRClaire after DC Call your doctor for: Concerns you may have Follow-Up Follow up with: Roberto Carlos in 2 wks Warfarin Follow-Up Warfarin Follow UP: none needed, AMALIA Garcia II, MD Feb 09, 2018 09:04
--- NOTE | 2018-02-09 14:55 | PDOC ---
ORTHO PROGRESS NOTES Subjective His pain is tolerable. Denies any chest pain or abdominal complaints Vitals Vital Signs Date Time Temp Pulse Resp B/P (MAP) Pulse Ox O2 Delivery O2 Flow Rate FiO2 02/09/18 11:00 Room Air 02/09/18 08:42 79 121/79 02/09/18 06:20 97.9 20 94 2.0 97.9 Labs Laboratory Tests Test 02/08/18 06:30 02/09/18 04:15 Prothrombin Time 13.1 SEC (11.7-14.0) 15.4 SEC (11.7-14.0) Prothromb Time International Ratio 1.0 (0.8-1.1) 1.3 (0.8-1.1) Activated Partial Thromboplast Time 26 SEC (24-38) Hemoglobin 11.5 g/dL (13.0-17.5) Hematocrit 32.9 % (39.0-53.0) Mean Corpuscular Hemoglobin Concent 35 g/dL (31-37) Laboratory Tests Test 02/09/18 04:15 Hemoglobin 11.5 g/dL (13.0-17.5) Hematocrit 32.9 % (39.0-53.0) Mean Corpuscular Hemoglobin Concent 35 g/dL (31-37) Prothrombin Time 15.4 SEC (11.7-14.0) Prothromb Time International Ratio 1.3 (0.8-1.1) Notes He is awake and alert and sitting in a chair. Dressing is intact and dry. Normal motor and sensation are present in his left lower extremity Assessment and Plan PT and OT today. We will stop Coumadin and start Xarelto. He may be ready to go home tomorrow. AMALIA CARVER II, MD Feb 09, 2018 14:55
[2018-02-09] MEDS ORDERED: BISACODYL 10 MG SUPP.RECT. PR PRN (16:00)
[2018-02-09] MEDS: RIVAROXABAN 10 MG TABLET. PO SCH (16:20)
[2018-02-09 19:00] VITALS: BP 133/85
[2018-02-09 20:30] VITALS: BP 137/84
[2018-02-09] MEDS: ATORVASTATIN CALCIUM 20 MG TABLET PO SCH (20:36)
[2018-02-09] MEDS: ZOLPIDEM 5 MG TABLET. PO PRN (22:00)
[2018-02-10] MEDS: oxyCODONE/APAP 7.5/325 1 TAB TABLET PO PRN ×4 (03:52→15:24)
[2018-02-10 05:20] LABS: HEMATOCRIT 30.8 % (39.0-53.0); HEMOGLOBIN 10.9 g/dL (13.0-17.5)
[2018-02-10 05:23] LABS: PROTHROMBIN TIME PATIENT 25.1 SEC (11.7-14.0)
[2018-02-10 06:35] VITALS: BP 150/91
--- NOTE | 2018-02-10 07:28 | PDOC ---
ORTHO PROGRESS NOTES Subjective Patient states feeling well moving leg in bed. Post-op Day: 2 Procedure L TEJAL Vitals Vital Signs Date Time Temp Pulse Resp B/P (MAP) Pulse Ox O2 Delivery O2 Flow Rate FiO2 02/10/18 06:35 97.9 67 20 150/91 (110) 93 Room Air 97.9 Labs Laboratory Tests Test 02/09/18 04:15 02/10/18 03:00 Hemoglobin 11.5 g/dL (13.0-17.5) 10.9 g/dL (13.0-17.5) Hematocrit 32.9 % (39.0-53.0) 30.8 % (39.0-53.0) Mean Corpuscular Hemoglobin Concent 35 g/dL (31-37) 35 g/dL (31-37) Prothrombin Time 15.4 SEC (11.7-14.0) 25.1 SEC (11.7-14.0) Prothromb Time International Ratio 1.3 (0.8-1.1) 2.4 (0.8-1.1) Laboratory Tests Test 02/10/18 03:00 Hemoglobin 10.9 g/dL (13.0-17.5) Hematocrit 30.8 % (39.0-53.0) Mean Corpuscular Hemoglobin Concent 35 g/dL (31-37) Prothrombin Time 25.1 SEC (11.7-14.0) Prothromb Time International Ratio 2.4 (0.8-1.1) Assessment and Plan Continue PT per protocol diacharge planning. NAVI HERNANDEZ APRN Feb 10, 2018 07:28
[2018-02-10] MEDS: MULTIVITAMIN with MINERAL TABLET. PO SCH (08:18)
[2018-02-10] MEDS: FERROUS SULFATE 325 MG TABLET. PO SCH (08:18)
[2018-02-10] MEDS: SOTALOL 80 MG TABLET. PO SCH (08:18)
[2018-02-10] MEDS: LISINOPRIL 10 MG TABLET PO SCH (08:19)
[2018-02-10] MEDS: CELECOXIB 100 MG CAPSULE. PO SCH (08:21)
[2018-02-10] MEDS: SENNOSIDES/DOCUSATE 8.6/50MG TABLET. PO SCH (08:21)
[2018-02-10] MEDS: CHOLECALCIFEROL (VITAMIN D3) 1,000 UNIT TABLET PO SCH (08:21)
[2018-02-10] MEDS ORDERED: ANTI-COAG MONITOR BY PHARMACY. MC PRN (10:30)
[2018-02-10] MEDS ORDERED: OXYC-327 PO (13:01)
[2018-02-10] MEDS ORDERED: RIVA10TA PO (13:01)
[2018-02-10 15:00] VITALS: BP 120/78
[2018-02-10] MEDS: RIVAROXABAN 10 MG TABLET. PO SCH (15:09)
--- NOTE | 2018-02-11 09:11 | PATHOLOGY ---
[facility] Accession Number: [id number] . 01 Material submitted: . BONE LEFT HIP . 01 Clinical history: . Left hip DJD . 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 [facility]/02/10/2018 . 02 Comment: There is no evidence of malignancy. . (JPM:mml; 02/10/18) . 02 Electronically signed: . Jorge Sanders MD, Pathologist NPI- [id number] . 01 Gross description: . The specimen is received in formalin, labeled "Toi Pace JR and bone, left hip ", is a femoral head (6.0 x 6.0 x 5.3 cm) with attached neck, (2.5 cm in length by 5.5 x 3.0 cm) that consist of a smooth margin. The articular surface shows extensive eburnation with several pitted areas. Sectioning of the head reveals thinning of the articular cartilage corresponding to the eburnation. The remaining bone parenchyma is sinha-yellow and a trabeculated. Jewelry Enameler sections are submitted in A1-A2 after decalcification. (A1 = femoral head and A2 = femoral neck) ([facility]; 02/08/2018) SHS/SHS . 02 Pathologist provided ICD-10: M16.12 . 02 CPT . 404915, [id number] Performed at: 01 [facility] [address], [place] [id number] MD Sonido Escamilla MD Phone: [phone] Performed at: 02 [facility] [address], [place] [id number] MD Jorge Sanders MD Phone: [phone]
--- NOTE | 2018-02-11 14:47 | PDOC3 ---
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 He had tried and failed conservative therapies including anti-inflammatories, physical therapy, image guided injections and despite all this his left hip pain was interfering with his activities daily living. We had a discussion of the risks, benefits, alternatives to left total hip arthroplasty knee wish proceed. He tolerated surgery well and recovered well from anesthesia in the PACU. He was taken to the joint center and recovered well there. He will receive DVT prophylaxis. Postop day 1, he requested that we stop Coumadin and start Zarrella toe which we did. His hospital course was essentially uneventful. He progressed well with therapy and his pain was controlled with oral pain medicine. Normal bowel and bladder function was present at the time of discharge. Incision was clean dry and intact. Discharge Information Condition at Discharge: Stable Follow Up: Weeks Disposition/Orders: D/C to Home Scheduled Aspirin (Aspir 81) 81 Mg Tablet., 1 TAB PO DAILY08, #30 Ref 5 (Reported) LAST DOSE: 07/14/15 AM NEXT DOSE: 07/15/15 AM Entered as Reported by: JOSSUE WESLEY on 02/19/15 [id number] Last Taken: Unknown Dose on 02/01/18 Last Action: HELD on 02/08/18 0707 by MIKEL CARVER MD Atorvastatin Calcium (Atorvastatin Calcium) 20 Mg Tablet, 1 TAB PO HS, #30 Ref 5 (Reported) LAST DOSE: 07/13/15 BEDTIME NEXT DOSE: 07/14/15 BEDTIME Entered as Reported by: JOSSUE WESLEY on 02/19/15 1648 Last Action: Continued on 02/08/18706 by MIKEL CARVER MD Cholecalciferol (Vitamin D3) (Vitamin D-3) 2,000 Unit Capsule, 2,000 UNIT PO DAILY, (Reported) Entered as Reported by: COCO TUCKER on 11/26/17844 Last Action: Converted on 02/08/18706 by MIKEL CARVER MD Diltiazem Hcl (Cardizem Cd) 240 Mg Cap.er.24h, 240 MG PO DAILY for FOR HYPERTENSION, #30 Ref 0 (Reported) Entered as Reported by: JERAD TONG on 02/01/16 0821 Last Taken: Unknown Dose on 02/08/18 0500 Last Action: Continued on 706 by MIKEL CARVER MD Lisinopril (Lisinopril) 10 Mg Tablet, 1 TAB PO DAILY, #30 Ref 5 (Reported) Entered as Reported by: COCO TUCKER on 11/26/17844 Last Action: Continued on 02/08/18706 by MIKEL CARVER MD Melatonin (Melatonin) 3 Mg Tablet, 10 MG PO HS, (Reported) Entered as Reported by: COCO TUCKER on 11/26/17844 Last Action: Converted on 02/08/18706 by MIKEL CARVER MD Rivaroxaban (Xarelto) 10 Mg Tablet, 1 TAB PO DAILY, #30 (Reported) Entered as Reported by: PABLO MENENDEZ on 02/10/18 1301 Sotalol Hcl (Sotalol) 80 Mg Tablet, 120 MG PO BID, #60 Ref 3 Prescribed by: DEREK NEWELL on 04/27/15 1344 Last Taken: Unknown Dose on 02/08/18 0500 Last Action: Converted on 706 by MIKEL CARVER MD Scheduled PRN Oxycodone/Apap 7.5-325 (Percocet 7.5-325 Mg Tablet) 1 Each Tablet, 1 TAB PO PRN Q3HRS PRN for PAIN, #50 Ref 0 (Reported) Entered as Reported by: PABLO MENENDEZ on 02/10/18 1303 Patient Instructions Patient Instructions He will be discharged home, home health care has been set up. We will get him transition outpatient therapy as soon as we are able. He'll be discharged on anticoagulation. He will follow up with me in 2 weeks, sooner should a problem arise. He can weight-bear as tolerated AMALIA CARVER II, MD Feb 11, 2018 14:47
--- NOTE | 2018-02-11 14:48 | DISCH ---
DISCHARGE WITH HOME HEALTH DISCHARGE INFORMATION: Discharge Date: Feb 10, 2018 Final Diagnosis: Advanced secondary DJD of left hip Condition on Discharge: Stable HOME HEALTH: Face to Face: I certify this patient is under my care and that I, or a nurse practitioner or physician's assistant professor of biochemistry working with me, had a face to face encounter that meets the physician face to face encounter requirements with this patient on []. Medical Condition(s): S/P Joint Replacement Halfway For: Other: (blood draws) Physical Therapy For: Evalulation/Treatment Occupational Therapy For: Evaluation/Treatment Patient meets Homebound Statu: Limited distance walking POST DISCHARGE ORDERS: Activity Instructions for Disc: Activity as tolerated Weight Bearing Status after Di: Full weight bearing Wound/Incision Care: Ice to area for comfort, Keep wound elevated, Do not change dressing Other wound/incision instructi: Keep dressing dry and clean CHECKS AFTER DISCHARGE: Checks after discharge: Check blood press - daily FOLLOW-UP: Follow up with: Roberto Carlos in 2 wks Follow Up With: Dr. Carver in 10-14 days [phone] Warfarin Follow UP: none needed, Xarelto TREATMENT/EQUIPMENT ORDERS Adaptive Equipment Issued: None CERTIFICATION STATEMENT: Certification Statement: Certification Statement: Based on the above finding, I certify that this patient is confined to the home and needs intermittent assisted care, physical therapy and/or speech therapy, or continues to need occupational therapy.~ This patient is under my care, and I have initiated the establishment of the plan of care.~ This patient will be followed by myself or a community physician who will periodically review the plan of care. AMALIA CARVER II, MD Feb 11, 2018 14:48
== END 2018-02-10 15:25 | disposition home health service (06) | DRG 470 ==
LOC: OPSVCIP 06:01 → 4 SOUTHEST 12:30
PROVIDERS: ADMIT Orthopaedic Surgery Sports Medicine; ATTEND Orthopaedic Surgery Sports Medicine
PROC: 0SRB06Z Replacement of Left Hip Joint with Oxidized Zirconium on Polyethylene Synthetic Substitute, Open Approach (ICD-10-PCS; principal; 2018-02-08 07:30)
DX: M16.12 Unilateral primary osteoarthritis, left hip (principal); Z79.899 Other long term (current) drug therapy
CPT/HCPCS: 36415; 72170; 85014; 85018; 85610; 85730; 86850; 86900; 86901; 88304; 88311; A7015; C1713; J0171; J0690; J1100; J1885; J2001; J2270; J2405; J2704; J2710; J2795; J3010; J3490; J7030; J7120; S0028; 97110; 97116; 97150; 97530; 97535

== ENCOUNTER → 2018-03-30 | Outpatient (CLI) | payer OTHER ==
[~2018-03-30] MED LIST changes: -AMLO5TAB2 PO; +AMLO5TAB7 PO; -HYDROcodone/APAP 7.5/325MG 1 TAB TABLET PO PRN; +IOHEXOL 180 MG/ML 10 ML VIAL. ONE; +LIDOCAINE 2% PF 2ML VIAL. ONE; -MELOXICAM 7.5 MG TABLET PO PRN; +OXYC-327 PO; +RIVA10TA PO; -TRANEXAMIC ACID 1,000 MG in IV NS 50ML -- 1ST BAG INJ ONE; +methylPREDNISolone ACETATE 40 MG/ML VIAL. ONE; +methylPREDNISolone ACETATE 80 MG/ML VIAL. ONE
--- NOTE | 2018-03-30 11:03 | PAIN ---
DATE OF SERVICE: 03/30/2018 PROGRESS NOTE FOR PAIN CLINIC DIAGNOSES: Lumbar radiculopathy with lumbar degenerative disk disease and post-lumbar laminectomy syndrome. HISTORY OF PRESENT ILLNESS: The patient is 62-year-old male who returns for followup status post left hip joint injection. The patient has since had a hip replacement in January of this year. He reports his hips doing much better. The patient reports his chief complaint today is low back pain and right posterior gluteus and posterior thigh pain. The patient reports pain radiating across the low back into the posterior gluteus, posterior thigh, more on the right but sometimes on the left as well. He rates this as a 9 on a scale of 10 at its worst, 6 on average and 8 at its least and is a 6 today. The patient reports it is aching and shooting, becoming more noticeable since his hip has been replaced. He has been doing some rehab and has been working with walking better and doing better with activities and range of motion with his back, although is becoming more tender in the low back itself. The patient reports it can awaken him from sleep about every 4-5 hours, usually get out of bed, change positions and get back to sleep without difficulty. The patient reports no new motor or sensory deficits and no new bowel or bladder incontinence or other complaints. He reports the pain is aching and shooting in quality, again worse on the right but present bilaterally in the posterior legs. PHYSICAL EXAMINATION: VITAL SIGNS: The patient's blood pressure is 140/96, pulse 69, respirations 18, temperature 98.3 degrees Fahrenheit, height is 6 feet 3 inches and weight is 247 pounds. GENERAL: The patient is awake, alert, oriented, appropriate and very pleasant demeanor. HEENT: Head shows normocephalic and atraumatic. Extraocular movements are intact and symmetrical. Oral cavity: Mucous membranes are moist and pink. Dentition is intact. NECK: Shows anterior throat supple without palpable lymphadenopathy noted. Swallow reflex is symmetrical. CHEST: Shows normal on inspection. Breath sounds clear to auscultation bilaterally. HEART: Shows S1 and S2 clear. No murmurs auscultated. ABDOMEN: Soft, nontender and nondistended. No palpable organomegaly is noted. No rebound or guarding demonstrated. BACK: Shows spine grossly in the midline. Normal appearing thoracic kyphosis and some slight flattening of lumbar lordotic curvature. Lumbar paraspinous musculature shows symmetrical on inspection and palpation shows some moderate tenderness, only in the low lumbar distribution. Well-healed surgical scarring is again noted. No trigger points, no radiation, no asymmetry and no tenderness over the sacrum or sacroiliac regions. The patient has good rotational motion of the lumbar spine, both laterally as well as extension and flexion without difficulty. The patient's lower extremities show deep tendon reflexes at 1+ in the patellar and tendo-calcaneus tendons. Motor exam is strong with 5/5 dorsiflexion and extension, quadriceps and hamstring flexions are symmetrical. The patient shows well-healed surgical scar over the left hip, which is nontender. Peripheral pulses are 1+ posterior tibial. No peripheral edema is noted bilaterally. Options were discussed with the patient. The patient's old chart was reviewed as well as his current medication regimen updated. Current review of systems updated today as well and we will proceed with a lumbar epidural steroid injection today with fluoroscopic guidance. Risks were again discussed including, but not limited to bleeding, infection, possibility of epidural hematoma, subsequent neurologic compromise, dural puncture, headaches, spinal cord and/or nerve damage, side effects of steroid medication and poor results regarding pain control. The patient understands and wished to proceed. The patient will return to the clinic in approximately 2 weeks for followup, was counseled as to return appointment, activity level and side effects to be aware of. DIAGNOSES: Lumbar radiculopathy with lumbar degenerative disk disease and lumbar post-laminectomy syndrome. PROCEDURE: Lumbar epidural steroid injection, translaminar approach, L5-S1 level using C-arm fluoroscopic guidance under sterile prep and drape using local anesthetic. MEDICATION INJECTED: A total of 120 mg Depo-Medrol plus 10 mL of preservative-free normal saline and 2 mL of Isovue for contrast. CONDITION AT DISCHARGE: Stable. The patient tolerated the procedure well and had no complications. OFELIA FIELDS MD DR: RACHAEL/kathy JOB#: [id number] / [id number]
== END | disposition home or self-care (01) ==
LOC: PNCL 08:04
PROVIDERS: ATTEND Anesthesiology
DX: M51.16 Intervertebral disc disorders with radiculopathy, lumbar region (principal); M96.1 Postlaminectomy syndrome, not elsewhere classified
CPT/HCPCS: 62323; J1030; J1040; J2001; Q9965

== ENCOUNTER → 2018-04-26 | Outpatient (CLI) | payer OTHER ==
[~2018-04-26] MED LIST changes: -IOHEXOL 180 MG/ML 10 ML VIAL. ONE; -LIDOCAINE 2% PF 2ML VIAL. ONE; -methylPREDNISolone ACETATE 40 MG/ML VIAL. ONE; -methylPREDNISolone ACETATE 80 MG/ML VIAL. ONE
--- NOTE | 2018-04-26 11:44 | CARD ---
MR#: [id number] Date of Study: 04/26/2018 Ordering Physician: DEREK NEWELL, Referring Physician: DEREK NEWELL, Tech: Lulu Queen APPROVED REPORT EXAM: Two-dimensional and M-mode echocardiogram with Doppler and color Doppler. Other Information Quality : AverageHR: 68bpm INDICATION Atrial Fibrillation RISK FACTORS Hypertension Hyperlipidemia 2D DIMENSIONS RVDd3.8 (2.9-3.5cm)Left Atrium(2D)4.8 (1.6-4.0cm) IVSd1.0 (0.7-1.1cm)Aortic Root(2D)3.5 (2.0-3.7cm) LVDd6.1 (3.9-5.9cm)LVOT Diameter2.2 (1.8-2.4cm) PWd1.2 (0.7-1.1cm)LVDs4.1 (2.5-4.0cm) FS (%) 33.2 %SV115.3 ml Aortic Valve AoV Peak Toy.112.4cm/sAoV VTI22.2cm AO Peak GR.5.1mmHgLVOT Peak Toy.97.1cm/s LVOT VTI 18.24cmAO Mean GR.3mmHg ANA ROSA (VMAX)2.57gd9UWM (VTI)3.25cm2 Mitral Valve MV E Vzuwhwzm73.6cm/sMV DECEL BXAW142ib MV A Brcxfyug17.0cm/sMV IZS92tl E/A Ratio1.0MVA (PHT)3.31cm2 TDI E/Lateral E'5.7E/Medial E'8.2 Pulmonary Valve PV Peak Ruqlnckx94.5cm/sPV Peak Grad.4mmHg Tricuspid Valve TR P. Hvybnzhn323wa/sTR Peak Gr.18mmHg Pulmonary Vein D2 Vlxlyzxn17.3cm/sPVa fblvnmie782zuvb LEFT VENTRICLE The Left Ventricle is borderline dilated. There is borderline to mild concentric left ventricular hyp ertrophy. The left ventricular systolic function is normal and the ejection fraction is within normal range. The Ejection Fraction is 50-55%. Transmitral Doppler flow pattern is Grade II-pseudonormal fi lling dynamics. RIGHT VENTRICLE The right ventricle is normal size. There is normal right ventricular wall thickness. The right ventr icular systolic function is normal. ATRIA The left atrium size is normal. The right atrium size is normal. The interatrial septum is intact wit h no evidence for an atrial septal defect or patent foramen ovale as noted on 2-D or Doppler imaging. AORTIC VALVE The aortic valve is thickened but opens well. Doppler and Color Flow revealed no significant aortic r egurgitation. There is no significant aortic valvular stenosis. Calculated aortic valve area is 3.3 c m2 with maximum pressure gradient of 5 mmHg and mean pressure gradient of 3 mmHg. MITRAL VALVE The mitral valve is normal in structure and function. Doppler and Color-flow revealed trace mitral re gurgitation. TRICUSPID VALVE The tricuspid valve is normal in structure and function. Doppler and Color Flow revealed trace tricus pid regurgitation. PULMONIC VALVE The pulmonic valve is not well visualized. Doppler and Color Flow revealed trace pulmonic valvular re gurgitation. GREAT VESSELS The aortic root is normal in size. The IVC is normal in size and collapses >50% with inspiration. PERICARDIAL EFFUSION There is no evidence of significant pericardial effusion. Critical Notification Critical Value: No <Conclusion> The Left Ventricle is borderline dilated. The left ventricular systolic function is normal and the ejection fraction is within normal range. The Ejection Fraction is 50-55%. There is borderline to mild concentric left ventricular hypertrophy. There is no significant aortic valvular stenosis. Doppler and Color Flow revealed no significant aortic regurgitation. Doppler and Color-flow revealed trace mitral regurgitation. Doppler and Color Flow revealed trace tricuspid regurgitation. Signed by : Riccardo Bardales MD Electronically Approved : 04/26/2018 11:44:27
== END | disposition home or self-care (01) ==
LOC: ECHO 08:59
PROVIDERS: ATTEND Internal Medicine Cardiovascular Disease
DX: I48.91 Unspecified atrial fibrillation (principal); I11.9 Hypertensive heart disease without heart failure; E78.5 Hyperlipidemia, unspecified
CPT/HCPCS: 93306

== ENCOUNTER → 2018-06-07 | Outpatient (CLI) | payer OTHER ==
[~2018-06-07] MED LIST changes: -OXYC-327 PO; +OXYC1TAB19 PO
--- NOTE | 2018-06-07 14:14 | RAD ---
Right lower extremity venous doppler ultrasound Indication:elevated d dimer/rt leg pain Technique: Color Doppler, grayscale, and spectral waveform analysis is used to evaluate the right femoral and popliteal veins. Findings: No evidence of deep venous thrombosis. Normal response to augmentation, normal compressibility and normal phasicity is demonstrated. Visualized calf veins are patent. Impression: Negative for deep venous thrombosis Electronically signed by: Abdiel Alba MD (06/07/2018 2:10 PM) [facility]
== END | disposition home or self-care (01) ==
LOC: US 13:37
PROVIDERS: ATTEND Family Medicine
DX: M25.561 Pain in right knee (principal); R79.89 Other specified abnormal findings of blood chemistry
CPT/HCPCS: 93971

== ENCOUNTER → 2019-04-27 | Day surgery (SDC) | payer OTHER ==
[~2019-04-27] MED LIST changes: +AMLO5TAB10 PO; -AMLO5TAB7 PO; +BALANCED SALT IRRIG OPHTH SOLN 15 ML BOTTLE. ONE; +CHONDROIT-SOD-HYALURONATE KIT. ONE; +CHONDROITIN-SOD-HYALURONATE 0.5 ML DISP.SYRIN. ONE; +CIPROFLOXACIN 0.3% OPHTH SOLUTION 5ML BOTTLE. OD ONE; +HYDROmorphone 2 MG/ML VIAL IV PRN; +IV RINGERS,LACTATED 1000ML 1,000 ML IV SCH; +LIDOCAINE 1% PF 2 ML VIAL. ONE; +LIDOCAINE 2% JELLY 6ML IN APPLICATOR. MM SCH; -MELA3TAB2 PO; +MELA3TAB56 PO; +MELO15TA23 PO; +MIDAZOLAM HCL/PF 2 MG/2 ML VIAL. ONE; +MORPHINE SULFATE 2 MG/ML VIAL. IV PRN; +NEO/POLYMYX/DEXAMETH OPHTH OINTMENT 3.5GM TUBE. ONE; +PROCHLORPERAZINE 10 MG/2 ML VIAL. IV PRN; +PROPARACAINE 0.5% OPHTH SOLUTION 15ML BOTTLE. OD ONE; +fentaNYL PF VIAL 100 MCG/2 ML VIAL IV PRN
[2019-04-27] MEDS: CYCLOPENTOLATE 1% OPTH SOLUTION 2ML BOTTLE. OD SCH ×3 (11:08→11:22)
[2019-04-27] MEDS: PHENYLEPHRINE 10% OPHTH SOLUTION 5ML BOTTLE. OD SCH ×3 (11:08→11:22)
[2019-04-27 12:50] VITALS: BP 152/84
--- NOTE | 2019-04-27 13:06 | OP ---
DATE OF SURGERY: 04/27/2019 PREOPERATIVE DIAGNOSIS: Cataract of the right eye. PROCEDURE: Phacoemulsification with posterior chamber intraocular lens implantation of the right eye. INDICATION: Painless progressive visual loss and difficulty with visualization. SURGEON: Dr. Kirt Fajardo. ANESTHESIA: Topical with monitored anesthesia care. DESCRIPTION OF PROCEDURE: The right eye was prepped with Betadine in the usual sterile fashion and draped. A paracentesis was performed followed by instillation of 1% preservative-free phenylephrine admixed with lidocaine and balanced salt solution. Viscoelastic was injected in the anterior chamber and a temporal clear corneal incision was made. A capsulorrhexis was performed followed by hydrodissection. The phacoemulsification handpiece was used to remove the nucleus in a modified stop and chop fashion. The I/A handpiece was used to remove the remainder of the cortex. Viscoelastic was injected in the capsular bag and the Mariusz model [id number] with a power of 19.5 diopters was placed into the capsular bag. Balanced salt solution was used to hydrate the corneal wounds and the viscoelastic evacuated with the I/A handpiece. Once no leak was noted, Maxitrol was placed on the eye and the eye shielded and the patient was sent to the recovery room uneventfully. KIRT FAJARDO MD DR: KIRK/nts JOB#: [id number] / [id number]
== END ==
LOC: SURG 09:06
PROVIDERS: ATTEND Ophthalmology
DX: H26.9 Unspecified cataract (principal); Z98.890 Other specified postprocedural states; I48.91 Unspecified atrial fibrillation; I11.9 Hypertensive heart disease without heart failure; E78.00 Pure hypercholesterolemia, unspecified; K21.9 Gastro-esophageal reflux disease without esophagitis; Z95.0 Presence of cardiac pacemaker; Z87.891 Personal history of nicotine dependence; Z90.49 Acquired absence of other specified parts of digestive tract; Z96.642 Presence of left artificial hip joint; Z72.89 Other problems related to lifestyle
CPT/HCPCS: 66984; C1780; J0171; J0690; J1580; J2250

== ENCOUNTER → 2019-04-27 | Outpatient (CLI) | payer OTHER ==
[~2019-04-27] MED LIST changes: -BALANCED SALT IRRIG OPHTH SOLN 15 ML BOTTLE. ONE; -CHONDROIT-SOD-HYALURONATE KIT. ONE; -CHONDROITIN-SOD-HYALURONATE 0.5 ML DISP.SYRIN. ONE; -CIPROFLOXACIN 0.3% OPHTH SOLUTION 5ML BOTTLE. OD ONE; -HYDROmorphone 2 MG/ML VIAL IV PRN; -IV RINGERS,LACTATED 1000ML 1,000 ML IV SCH; -LIDOCAINE 1% PF 2 ML VIAL. ONE; -LIDOCAINE 2% JELLY 6ML IN APPLICATOR. MM SCH; -MIDAZOLAM HCL/PF 2 MG/2 ML VIAL. ONE; -MORPHINE SULFATE 2 MG/ML VIAL. IV PRN; -NEO/POLYMYX/DEXAMETH OPHTH OINTMENT 3.5GM TUBE. ONE; -PROCHLORPERAZINE 10 MG/2 ML VIAL. IV PRN; -PROPARACAINE 0.5% OPHTH SOLUTION 15ML BOTTLE. OD ONE; -fentaNYL PF VIAL 100 MCG/2 ML VIAL IV PRN
--- NOTE | 2019-04-27 11:03 | CARD ---
MR#: [id number] Date of Study: 04/27/2019 Ordering Physician: DEREK NEWELL, Referring Physician: DEREK NEWELL, Tech: Lulu Queen APPROVED REPORT EXAM: Two-dimensional and M-mode echocardiogram with Doppler and color Doppler. Other Information Quality : AverageHR: 81bpm Rhythm : Pacemaker INDICATION Atrial Fibrillation Surgery/Intervention Pacemaker: Date: 2016 RISK FACTORS Hypertension Hyperlipidemia 2D DIMENSIONS RVDd3.1 (2.9-3.5cm)Left Atrium(2D)5.1 (1.6-4.0cm) IVSd1.4 (0.7-1.1cm)Aortic Root(2D)3.7 (2.0-3.7cm) LVDd5.9 (3.9-5.9cm)LVOT Diameter2.5 (1.8-2.4cm) PWd1.4 (0.7-1.1cm)LVDs4.7 (2.5-4.0cm) FS (%) 20.6 %SV71.3 ml LVEF(%)41.4 (>50%) Aortic Valve AoV Peak Toy.132.8cm/sAoV VTI24.3cm AO Peak GR.7.1mmHgLVOT Peak Toy.85.1cm/s LVOT VTI 17.36cmAO Mean GR.3mmHg ANA ROSA (VMAX)2.28km8UXV (VTI)3.47cm2 Mitral Valve MV E Xezpeqme07.5cm/sMV DECEL TPYQ894vk MV A Epluadei62.4cm/sMV KTJ53ld E/A Ratio1.4MVA (PHT)4.00cm2 TDI E/Lateral E'7.2E/Medial E'13.2 Pulmonary Valve PV Peak Cwsydsen52.3cm/sPV Peak Grad.3mmHg Tricuspid Valve TR P. Ixnlxzpx132hh/sRAP HSAIJMPP8ljBo TR Peak Gr.81hwYgIZWR19ezXd Pulmonary Vein S1 Paeugxxn19.9cm/sD2 Ummhtqpo09.3cm/s PVa gbqiqhbb660rtfh LEFT VENTRICLE The Left Ventricle is borderline dilated. There is moderate concentric left ventricular hypertrophy. The left ventricular systolic function is low normal. The Ejection Fraction is 50%. There is slight g lobal hypokinesis of the left ventricle. Transmitral Doppler flow pattern is Grade II-pseudonormal fi lling dynamics. RIGHT VENTRICLE The right ventricle is borderline dilated. There is normal right ventricular wall thickness. The righ t ventricular systolic function is normal. ATRIA The left atrium is mildly dilated. The right atrium is mildly dilated. The interatrial septum is inta ct with no evidence for an atrial septal defect or patent foramen ovale as noted on 2-D or Doppler im aging. AORTIC VALVE The aortic valve is thickened but opens well. Doppler and Color Flow revealed no significant aortic r egurgitation. There is no significant aortic valvular stenosis. MITRAL VALVE The mitral valve is normal in structure and function. There is no evidence of mitral valve prolapse. There is no mitral valve stenosis. Doppler and Color-flow revealed trace to mild mitral regurgitation . TRICUSPID VALVE The tricuspid valve is normal in structure and function. Doppler and Color Flow revealed trace tricus pid regurgitation with an estimated PAP of 31 mmHg. There is no tricuspid valve stenosis. PULMONIC VALVE Doppler and Color Flow revealed no pulmonic valvular regurgitation. There is no pulmonic valvular gualberto nosis. GREAT VESSELS The aortic root is normal in size. The IVC was not well visualized. PERICARDIAL EFFUSION There is no evidence of significant pericardial effusion. Critical Notification Critical Value: No <Conclusion> The left ventricular systolic function is low normal. The Ejection Fraction is 50%. There is slight global hypokinesis of the left ventricle. Doppler and Color Flow revealed trace tricuspid regurgitation with an estimated PAP of 31 mmHg. Signed by : Jamir Campbell, Electronically Approved : 04/27/2019 11:03:09
== END | disposition home or self-care (01) ==
LOC: ECHO 09:02
PROVIDERS: ATTEND Internal Medicine Cardiovascular Disease
DX: I34.0 Nonrheumatic mitral (valve) insufficiency (principal); I11.9 Hypertensive heart disease without heart failure; I48.91 Unspecified atrial fibrillation
CPT/HCPCS: 93306

== ENCOUNTER → 2019-11-01 | Outpatient (CLI) | payer OTHER ==
[2019-04-27 12:50] VITALS: BP 152/84
[~2019-11-01] MED LIST changes: +MELA3TAB4 PO; -MELA3TAB56 PO; +REGADENOSON 0.4 MG/5 ML DISP.SYRIN. IV ONE
--- NOTE | 2019-11-01 11:10 | RAD ---
MR#: [id number] Date of Study: 11/01/2019 Ordering Physician: DEREK NEWELL Referring Physician: DAMIAN MELARA Tech: CHARMAINE Velazco APPROVED REPORT Test Type: Pharmacological Stress Nurse/Tech: CHARMAINE Velazco Test Indications: A Fib Cardiac History: Ablation 2018 Medications: see EHR Medical History: see EHR Resting ECG: Paced no arrythmias Resting Heart Rate: 71 bpm Resting Blood Pressure: 148/92mmHg Pretest Chest Pain: None Nurse/Tech Notes Consent: The procedure was explained to the patient in lay terms. Informed consent was witnessed. Fish eout was entered into Relive. History and Stress Test performed by CHARMAINE Velazco Pharm. Details Pharmacologic stress testing was performed using 0.4mg per 5ml of regadenoson given intravenously ove r 7-10 seconds. POST EXERCISE Reason for Termination: Infusion complete Max Blood Pressure: 129/80mmHg Blood Pressure response to exercise: Normal blood pressure response during stress. Chest Pain: No. INTERPRETATION Stress EKG Conclusion: A V paced rhythm at rest. V paced rhythm with exertion. Paced rhythm throughout the patient's exam. Imaging Protocol IMAGE PROTOCOL: Rest Tc-99m/stress Tc-99m 1 day Rest: Stress: Viability: Radiopharm.Tc99m IgykuwzibPf19k Sestamibi Iugq67eNn 33mCi Duration 15min. 10min. Img Date 11/01/2019 11/01/2019 Inj-Img Yrkk80jkh. 60min. Rest Admin Site:IV - Right ForearmAdministrator:RT Rebecca (R)(N) Stress Admin Site: IV - Right ForearmAdministrator: CHARMAINE Velazco STRESS DATA End Diast. Vol.191.0mlAv. Heart Rate68.0bpm End Syst. Vol.66.0mlCO Index BSA0.0L/min Myocardial Berc008.0gEject. Dwgjclei10.0% Stress Rates Pk. Fill Rate2.64EDV/secLVtime Pk. Fill 215.78msec Pk. Empty Rate3.07ESV/secLVtime Pk. Xyawd657.39msec 1/3 Pk. Fill1.05EDV/sec Stress Scores Regional WT2.00Summed WT8.00 Regional WM0.00Summed WM1.00 LV Perfusion The stress scans show slight inferior lateral wall thinning. The rest scans show slight inferior lateral wall thinning. Nuclear imaging shows no reversible ischemia. Nuclear imaging shows slight fixed thinning of the inferior lateral wall. Wall Motion Left ventricular systolic function shows no regional wall motion abnormalities with an ejection fract ion of 63%. LV Perf. Quant 17 Seg. SSS0.00 17 Seg. SRS2.00 17 Seg. SDS0.00 Stress Defect Extent (% LAD)0.00Rest Defect Extent (% LAD)0.00Rev. Defect Extent (% LAD)0.00 Stress Defect Extent (% LCX) 0.00Rest Defect Extent (% LCX)2.50Rev. Defect Extent (% LCX)0.00 Stress Defect Extent (% RCA)4.40Rest Defect Extent (% RCA)15.60Rev. Defect Extent (% RCA)0.00 Stress Defect Extent (% ANABELLA)2.00Rest Defect Extent (% ANABELLA)7.80Rev. Defect Extent (% ANABELLA)0.00 Conclusion 1. Paced rhythm. 2. Nuclear imaging shows no reversible ischemia. 3. Nuclear imaging shows slight fixed inferior lateral wall thinning. 4. Left ventricular systolic function shows no regional wall motion abnormalities and an ejection fra ction of 63%. 5. Moderately low risk Lexiscan nuclear stress test. Signed by : Riccardo Bardales MD Electronically Approved : 11/01/2019 11:09:34
== END | disposition home or self-care (01) ==
LOC: NM 07:25
PROVIDERS: ATTEND Internal Medicine Cardiovascular Disease
DX: I48.91 Unspecified atrial fibrillation (principal); I10 Essential (primary) hypertension; Z95.0 Presence of cardiac pacemaker; Z79.01 Long term (current) use of anticoagulants
CPT/HCPCS: 78452; 93017; A9500; J2785

== ENCOUNTER → 2020-04-02 | Outpatient (CLI) | payer OTHER ==
[2019-04-27 12:50] VITALS: BP 152/84
[~2020-04-02] MED LIST changes: -AMIO200T4 PO; +AMIO200T6 PO; +AMLO-186 PO; -AMLO5TAB10 PO; -REGADENOSON 0.4 MG/5 ML DISP.SYRIN. IV ONE
--- NOTE | 2020-04-02 16:09 | CARD ---
MR#: [id number] Date of Study: 04/02/2020 Ordering Physician: DEREK NEWELL, Referring Physician: DEREK NEWELL Tech: Bonnie Cam RDCS APPROVED REPORT EXAM: Two-dimensional and M-mode echocardiogram with Doppler and color Doppler. Other Information Quality : Good INDICATION Atrial Fibrillation Surgery/Intervention Pacemaker: Date: 07/13/15 2D DIMENSIONS RVDd2.6 (2.9-3.5cm)Left Atrium(2D)4.5 (1.6-4.0cm) IVSd1.8 (0.7-1.1cm)Aortic Root(2D)3.2 (2.0-3.7cm) LVDd4.8 (3.9-5.9cm)LVOT Diameter2.3 (1.8-2.4cm) PWd1.1 (0.7-1.1cm)LVDs3.5 (2.5-4.0cm) FS (%) 26.8 %SV56.6 ml LVEF(%)52.2 (>50%) Aortic Valve AoV Peak Toy.119.0cm/sAoV VTI23.3cm AO Peak GR.5.7mmHgLVOT Peak Toy.100.5cm/s LVOT VTI 19.86cmAO Mean GR.4mmHg ANA ROSA (VMAX)3.97mh0ECX (VTI)3.60cm2 Mitral Valve MV E Ggaennjy78.4cm/sMV DECEL LSLE534xn MV EKX38xnMEJ (PHT)4.30cm2 TDI E/Lateral E'6.7E/Medial E'15.4 Tricuspid Valve TR P. Zsudctqz482zt/sRAP EGFMBMJA0tyVf TR Peak Gr.57yaIpACGH87bmUx Pulmonary Vein S1 Nwqvskwp53.1cm/sD2 Supoxutc32.3cm/s LEFT VENTRICLE The left ventricle is normal size. There is mild asymmetric septal hypertrophy. Left ventricle systol ic function is low normal. The Ejection Fraction is estimated at 50-55%. There is normal LV segmental wall motion. RIGHT VENTRICLE The right ventricle is normal size. The right ventricular systolic function is normal. There are elke ce leads in the right ventricle and atrium. ATRIA The left atrium is mildly dilated. The right atrium size is normal. The interatrial septum is intact with no evidence for an atrial septal defect or patent foramen ovale as noted on 2-D or Doppler imagi ng. AORTIC VALVE The aortic valve is calcified but opens well. Doppler and Color Flow revealed no significant aortic r egurgitation. There is no significant aortic valvular stenosis. MITRAL VALVE The mitral valve is calcified but opens well. There is no evidence of mitral valve prolapse. There is no mitral valve stenosis. Doppler and Color-flow revealed trace to mild mitral regurgitation. TRICUSPID VALVE The tricuspid valve is normal in structure and function. Doppler and Color Flow revealed trace to mil d tricuspid regurgitation. The PA pressure was estimated at 33 mmHg. There is no tricuspid valve sten osis. PULMONIC VALVE The pulmonic valve is not well visualized. Doppler and Color Flow revealed no pulmonic valvular regur gitation. There is no pulmonic valvular stenosis. GREAT VESSELS The aortic root is normal in size. The ascending aorta is mildly dilated at 3.5 cm. The IVC is normal in size and collapses >50% with inspiration. PERICARDIAL EFFUSION There is no evidence of significant pericardial effusion. Critical Notification Critical Value: No <Conclusion> The left ventricle is normal size. Left ventricle systolic function is low normal. The Ejection Fraction is estimated at 50-55%. There are device leads in the right ventricle and atrium. Doppler and Color Flow revealed no significant aortic regurgitation. There is no significant aortic valvular stenosis. Doppler and Color-flow revealed trace to mild mitral regurgitation. Doppler and Color Flow revealed trace to mild tricuspid regurgitation. The PA pressure was estimated at 33 mmHg. The ascending aorta is mildly dilated at 3.5 cm. Signed by : Riccardo Bardales MD Electronically Approved : 04/02/2020 16:08:52
== END ==
LOC: ECHO 07:53
PROVIDERS: ATTEND Internal Medicine Cardiovascular Disease
DX: I08.3 Combined rheumatic disorders of mitral, aortic and tricuspid valves (principal); I48.91 Unspecified atrial fibrillation
CPT/HCPCS: 93306

== ENCOUNTER → 2020-09-11 | Outpatient (CLI) | payer OTHER ==
[2019-04-27 12:50] VITALS: BP 152/84
[~2020-09-11] MED LIST changes: +LISI10TA16 PO; -LISI10TA2 PO
[2020-09-11 10:04] LABS: BASO # 0.1 x10^3/uL (0.0-0.2); BASO % 1 % (0-3); EOS # 0.1 x10^3/uL (0.0-0.7); EOS % 1 % (0-3); HEMATOCRIT 45.3 % (39.0-53.0); LYMPH # 1.8 x10^3/uL (1.0-4.8); LYMPH % 28 % (24-48); MEAN CORPUSCULAR HEMOGLOBIN 27 pg (25-35); MEAN CORPUSCULAR HGB CONC 33 g/dL (31-37); MEAN CORPUSCULAR VOLUME 83 fL (79-100); MONO # 0.6 x10^3/uL (0.0-1.1); MONO % 9 % (0-9); NEUT # 3.9 x10^3/uL (1.8-7.7); NEUT % 61 % (31-73); PLATELET COUNT 302 x10^3/uL (140-400); RED BLOOD COUNT 5.48 x10^6/uL (4.30-5.70); RED CELL DISTRIBUTION WIDTH 14.1 % (11.5-14.5); WHITE BLOOD COUNT 6.5 x10^3/uL (4.0-11.0)
[2020-09-11 10:28] LABS: ALBUMIN 3.4 g/dL (3.4-5.0); CALCIUM 8.8 mg/dL (8.5-10.1); CHOLESTEROL/HDL RATIO 4.4; CREATININE 0.8 mg/dL (0.7-1.3); GFR 96.4; POTASSIUM 3.9 mmol/L (3.5-5.1); TOTAL BILIRUBIN 0.8 mg/dL (0.2-1.0); TOTAL PROTEIN 6.9 g/dL (6.4-8.2); URIC ACID 6.4 mg/dL (3.5-7.2)
== END ==
LOC: LAB 10:09
PROVIDERS: ATTEND Family Medicine
DX: Z12.5 Encounter for screening for malignant neoplasm of prostate (principal); Z11.59 Encounter for screening for other viral diseases; E78.5 Hyperlipidemia, unspecified; M10.9 Gout, unspecified; R53.83 Other fatigue
CPT/HCPCS: 80053; 80061; 82306; 84402; 84403; 84443; 84550; 85025; 86803; G0103

== ENCOUNTER → 2020-10-23 | Outpatient (CLI) | payer OTHER ==
[2019-04-27 12:50] VITALS: BP 152/84
--- NOTE | 2020-10-23 08:51 | EKG ---
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
[2020-10-23 09:19] LABS: BASO % 1 % (0-3); EOS # 0.1 x10^3/uL (0.0-0.7); EOS % 2 % (0-3); HEMATOCRIT 43.2 % (39.0-53.0); HEMOGLOBIN 14.7 g/dL (13.0-17.5); LYMPH # 2.3 x10^3/uL (1.0-4.8); LYMPH % 36 % (24-48); MEAN CORPUSCULAR HEMOGLOBIN 28 pg (25-35); MEAN CORPUSCULAR HGB CONC 34 g/dL (31-37); MEAN CORPUSCULAR VOLUME 83 fL (79-100); MONO # 0.5 x10^3/uL (0.0-1.1); MONO % 8 % (0-9); NEUT # 3.4 x10^3/uL (1.8-7.7); NEUT % 54 % (31-73); PLATELET COUNT 292 x10^3/uL (140-400); RED BLOOD COUNT 5.22 x10^6/uL (4.30-5.70); RED CELL DISTRIBUTION WIDTH 15.1 % (11.5-14.5); WHITE BLOOD COUNT 6.4 x10^3/uL (4.0-11.0)
[2020-10-23 09:28] LABS: PROTHROMBIN TIME PATIENT 12.8 SEC (11.7-14.0)
[2020-10-23 09:29] LABS: ALBUMIN 3.5 g/dL (3.4-5.0); CALCIUM 8.8 mg/dL (8.5-10.1); CREATININE 0.8 mg/dL (0.7-1.3); GFR 96.4; POTASSIUM 3.9 mmol/L (3.5-5.1)
--- NOTE | 2020-10-23 10:03 | RAD ---
EXAM: PA and Lateral Views of the Chest DATE: 10/23/2020 9:20 AM INDICATION: Reason: pre op -RIGHT TOTAL KNEE SCHEDULED 11/06. Instructions: / History: COMPARISON: No Prior FINDINGS: Mild cardiomegaly. Aorta is tortuous other scarring calcifications. Cardiac generator pack obscures a portion of the left chest with leads in stable position. Mediastinal and hilar contours are stable. No focal parenchymal airspace opacity. No pleural effusion or pneumothorax. IMPRESSION: 1. No radiographic evidence for acute cardiopulmonary process. Electronically signed by: Juan Grewal MD (10/23/2020 10:01 AM) [facility]
[2020-10-24 00:13] LABS: HEMOGLOBIN A1C 5.8 % (4.8-5.6)
== END ==
LOC: SURGPAT 07:59
PROVIDERS: ATTEND Orthopaedic Surgery
DX: Z01.818 Encounter for other preprocedural examination (principal); M17.11 Unilateral primary osteoarthritis, right knee; Z96.651 Presence of right artificial knee joint
CPT/HCPCS: 36415; 71046; 80048; 82040; 82306; 83036; 85025; 85610; 85651; 87641; 93005

== ENCOUNTER → 2020-11-02 | Outpatient (CLI) | payer OTHER ==
[2020-10-23 09:01] VITALS: BP 147/101
[~2020-11-02] MED LIST changes: +WARF-31 PO
== END ==
LOC: LAB 09:09
PROVIDERS: ATTEND Orthopaedic Surgery
DX: Z01.812 Encounter for preprocedural laboratory examination (principal); Z20.822 Contact with and (suspected) exposure to COVID-19; M17.11 Unilateral primary osteoarthritis, right knee
CPT/HCPCS: U0003; U0005

== ENCOUNTER 2020-11-06 07:52 | Observation (INO) | payer OTHER, MEDICARE ==
[2020-10-23 09:01] VITALS: BP 147/101
[2020-11-06] VITALS (9 sets, daily range): BP systolic 132–162; BP diastolic 84–95
[~2020-11-06] VITALS: Ht 190.5 cm; Wt 107.0 kg
[~2020-11-06 07:52] MED LIST changes: +ACETAMINOPHEN 500 MG TABLET PO PRN; +GABAPENTIN 300 MG CAPSULE. PO PRN; +IV RINGERS,LACTATED 1000ML 1,000 ML IV SCH; +MELOXICAM 7.5 MG TABLET PO PRN; +MORPHINE SULFATE 5 MG, KETOROLAC 30MG VIAL 30 MG, ROPIVacaine 0.5% PF 60 ML, EPINEPHrin... INT ART ONE; +PROCHLORPERAZINE 10 MG/2 ML VIAL. IVP PRN; +TRANEXAMIC ACID in NS IVPB 100 ML ONE; +TRANEXAMIC ACID in NS IVPB 50 ML INJ ONE; +VANCOMYCIN 1 GM VIAL. ONE; -WARF-31 PO; +fentaNYL PF VIAL 100 MCG/2 ML VIAL IVP PRN
[2020-11-06] MEDS ORDERED: TRANEXAMIC ACID in NS IVPB 50 ML INJ ONE (08:00)
[2020-11-06] MEDS ORDERED: MELO15TA23 PO (08:09)
[2020-11-06] MEDS ORDERED: WARF-31 PO (08:09)
[2020-11-06] MEDS ORDERED: PROPOFOL 10 MG/ML (20ML) VIAL. IV ONE (08:22)
[2020-11-06] MEDS ORDERED: ONDANSETRON PF 4 MG/2 ML VIAL. ONE (08:22)
[2020-11-06] MEDS ORDERED: LIDOCAINE 2% PF 5 ML VIAL. ONE (08:22)
[2020-11-06] MEDS ORDERED: DEXAMETHASONE SOD PHOS 4 MG/ML VIAL ONE (08:22)
[2020-11-06 08:47] LABS: PROTHROMBIN TIME PATIENT 13.2 SEC (11.7-14.0)
[2020-11-06] MEDS ORDERED: fentaNYL PF VIAL 100 MCG/2 ML VIAL ONE ×2 (09:16→13:09)
[2020-11-06] MEDS ORDERED: SEVOFLURANE > 120 MINUTES. IH ONE (10:52)
[2020-11-06] MEDS ORDERED: 0.9 % SODIUM CHLORIDE 10 ML DISP.SYRIN. IV PRN (11:00)
[2020-11-06] MEDS ORDERED: ZOLPIDEM 5 MG TABLET. PO PRN (11:00)
[2020-11-06] MEDS ORDERED: MORPHINE SULFATE 2 MG/ML VIAL. IVP PRN (11:00)
[2020-11-06] MEDS ORDERED: PROCHLORPERAZINE 5 MG TABLET. PO PRN (11:00)
[2020-11-06] MEDS ORDERED: DEXTROSE 50% 25 GM / 50ML DISP.SYRIN. IV PRN (11:00)
[2020-11-06] MEDS ORDERED: fentaNYL PF VIAL 100 MCG/2 ML VIAL IVP PRN (11:00)
[2020-11-06] MEDS ORDERED: IV NORMAL SALINE 1000ML BAG 1,000 ML IV SCH (11:00)
[2020-11-06] MEDS ORDERED: CALCIUM CARBONATE 500 MG TAB.CHEW PO PRN (11:00)
[2020-11-06] MEDS ORDERED: diphenhydrAMINE 50 MG/ML VIAL IVP PRN (11:00)
[2020-11-06] MEDS: ONDANSETRON ODT 4 MG TAB.RAPDIS. PO SCH ×3 (12:00→23:33)
[2020-11-06] MEDS: ONDANSETRON PF 4 MG/2 ML VIAL. IVP SCH ×3 (12:00→23:33)
[2020-11-06] MEDS ORDERED: PROCHLORPERAZINE 10 MG/2 ML VIAL. ONE (13:09)
[2020-11-06] MEDS: fentaNYL PF VIAL 100 MCG/2 ML VIAL IVP PRN ×2 (13:13→13:18)
[2020-11-06] MEDS ORDERED: MORPHINE SULFATE 2 MG/ML VIAL. ONE (13:17)
[2020-11-06] MEDS: MORPHINE SULFATE 2 MG/ML VIAL. IVP PRN ×2 (13:20→13:35)
[2020-11-06] MEDS ORDERED: HYDROmorphone 2 MG/ML VIAL ONE (13:26)
[2020-11-06] MEDS: HYDROmorphone 2 MG/ML VIAL IVP PRN ×4 (13:29→14:00)
--- NOTE | 2020-11-06 13:39 | RAD ---
Site ID: [id number] views of the right knee. Indication: post total knee arthroplasty Findings: There is femoral and tibial prosthesis seen in good alignment. Anterior soft tissue post-operative ch anges are seen. No fracture or dislocation. Impression: Baseline post right knee arthroplasty in good alignment. Electronically signed by: Yandel Freeman MD (11/06/2020 1:36 PM) [id number]
--- NOTE | 2020-11-06 14:28 | NUR ---
Arrived to unit by bed from PACU. Awake and oriented x's 4. Right leg elevated on pillow with ice pack. JUSTINA dressing on right knee is d/i. Pedal pulses + bilaterally, warm and able to wiggle toes. Rates pain at "6" its better prior to transferring from PACU. O2 at 2l per n/c. IVF's intact and infusing. Oriented to room and controls. Side rails up x's 2 with call light in reach. Spouse and brother at bedside. Cont. monitor.
[2020-11-06] MEDS ORDERED: WARFARIN 7.5 MG TABLET. PO ONE (16:00)
[2020-11-06] MEDS: FERROUS SULFATE 325 MG TABLET. PO SCH (17:03)
[2020-11-06] MEDS: oxyCODONE IR 5 MG TABLET PO PRN ×2 (17:12→21:13)
[2020-11-06] MEDS: ATORVASTATIN CALCIUM 20 MG TABLET PO SCH (20:45)
[2020-11-06] MEDS: LISINOPRIL 10 MG TABLET PO SCH (20:46)
[2020-11-06] MEDS ORDERED: NON FORMULARY ITEM (Melatonin 10 MG) PO SCH (21:00)
--- NOTE | 2020-11-07 00:20 | PDOC4 ---
Operative Note Operative Note Date of surgery: 10/30/2020 Preoperative diagnosis: Degenerative right knee Postoperative diagnosis: Same Operative procedure: Right total knee arthroplasty Surgeon: Milagros Assist: Jodi rodriguez Anesthesia: General Estimated blood loss: 25 cc Complications: None Specimens: Cartilage surfaces to pathology Operative indications: Please see my dictated preoperative history and physical for detailed operative indications and note that we had reviewed preoperatively risks benefits postoperative course of the surgery including the possibility of infection continued pain nerve or blood vessel damage premature wear or loosening instability medical or other anesthetic complications among others and he agrees to proceed with surgical evaluation and treatment having given informed consent Operative text: Patient was identified procedure verified patient placed in the supine position on the operating table. After adequate amounts of general anesthesia were administered the right lower extremity was prepped and draped in standard sterile fashion with a thigh tourniquet and after timeout was performed patient procedure identified and verified the right lower extremity was exsanguinated by Esmarch bandage tourniquet inflated to 300 mmHg and a midline incision was made followed by a medial parapatellar approach fat pad was excised and patella everted and the distal femur drilled to accommodate the intramedullary cutting guide which was set at 5 degrees with a standard distal cut. Menisci and cruciate ligaments were excised and a tibial cut was made using the extra medullary cutting guide aligned with the second toe with alignment verified with a spacer and drop joselito. Distal femur was measured at a size 11 and anterior posterior chamfer cuts were then made and ligament balancing carried out with a moderate medial release. After flexion extension gaps were verified tibia was sized at a size H and drilled and broached. A size 11 standard right femur was then trialed fit with the 12 mm height medial congruent trial spacer and excellent motion and stability were obtained. Femoral lug holes were drilled and osteophytes removed from the patella and the remaining patellar cartilage was adequate and I elected not to perform any further resurfacing. He had excellent tracking. Trial components were removed thorough irrigation carried out with normal saline solution and the following persona components were cemented in place with polymethylmethacrylate cement: A size H persona natural tibial component, a size 11 standard right Sangeetha persona cruciate retaining femur. Excess cement was removed with a curette and a vitamin E medial congruent 12 mm height articular spacer was locked into place and the knee held into extension until cement was dry. Irrigation again carried out with dilute Betadine lavage and normal saline solution and 1 g vancomycin was placed in the knee joint. Retinaculum closed with #1 PDS suture in a running fashion subcutaneous closure with buried Vicryl sutures subcuticular closure with three oh strata fix Monocryl. A aby dressing was placed. Toes we re noted to be warm pink following deflation of the tourniquet patient was returned to recovery room in stable condition having tolerated procedure well. Jodi rodriguez was present for the procedure and assisted in patient positioning prepping draping retraction closure dressings CHRISTIAN WRAY MD November 07, 2020 00:20
[2020-11-07 03:53] VITALS: BP 123/86
[2020-11-07] MEDS: oxyCODONE IR 5 MG TABLET PO PRN ×4 (03:55→20:54)
[2020-11-07] MEDS: traMADol 50 MG TABLET PO SCH ×4 (05:31→23:29)
[2020-11-07] MEDS: ONDANSETRON PF 4 MG/2 ML VIAL. IVP SCH (05:31)
[2020-11-07] MEDS: GABAPENTIN 100 MG CAPSULE. PO SCH ×2 (05:31→15:23)
[2020-11-07] MEDS: ONDANSETRON ODT 4 MG TAB.RAPDIS. PO SCH (05:31)
[2020-11-07 05:32] VITALS: BP 126/72
[2020-11-07] MEDS ORDERED: MAGNESIUM HYDROXIDE 2,400 MG/30 ML ORAL.SUSP. PO PRN (06:00)
[2020-11-07 07:50] LABS: PROTHROMBIN TIME PATIENT 16.2 SEC (11.7-14.0)
[2020-11-07] MEDS: ASPIRIN ENTERIC COATED 81 MG TABLET.DR. PO SCH (08:03)
[2020-11-07] MEDS: FERROUS SULFATE 325 MG TABLET. PO SCH ×2 (08:03→17:03)
[2020-11-07] MEDS: MULTIVITAMIN with MINERAL TABLET. PO SCH (08:03)
[2020-11-07] MEDS: MELOXICAM 7.5 MG TABLET PO SCH (08:03)
[2020-11-07] MEDS: ACETAMINOPHEN 500 MG TABLET PO SCH ×3 (08:04→20:53)
[2020-11-07] MEDS: SENNOSIDES/DOCUSATE 8.6/50MG TABLET. PO SCH (08:04)
[2020-11-07 08:12] LABS: HEMATOCRIT 38.4 % (39.0-53.0); HEMOGLOBIN 12.5 g/dL (13.0-17.5)
--- NOTE | 2020-11-07 10:30 | NUR ---
Pharmacy Warfarin Dosing Note S:Pharmacy consulted to assist with anticoagulation therapy started 11/06/20 with target INR: 1.6 - 2.5 O:ESMESTEPHANIERISHI Chaidez is a 65 year old M with TKA LABS: Last INR: 1.3 Last HGB: 12.5 Last HCT: 38.4 Last PLT: Last dose of 7.5 mg given on 11/06/20 at 1704 Previous Regimen: Vitamin K given: Drug Interaction Changes: Ongoing Drug Interactions: A:INR of 1.3 is below desired range. Target range for this patient is: 1.6 - 2.5 P: Warfarin dose: 5 mg Today at 1600 Bridge Therapy: None Next INR due 11/08/20. Pharmacy anticoagulation service will continue to follow. ROC VELASQUEZ RPH, 11/07/20 [id number]
[2020-11-07] MEDS ORDERED: ONDANSETRON PF 4 MG/2 ML VIAL. IVP PRN (12:00)
[2020-11-07] MEDS ORDERED: ONDANSETRON ODT 4 MG TAB.RAPDIS. PO PRN (12:00)
--- NOTE | 2020-11-07 12:56 | PDOC ---
PROGRESS NOTES Date of Service DATE: 11/07/20 TIME: 12:55 Subjective Subjective Problems overnight: Pain is well controlled and he is getting up and around well Objective Vital Signs Vital Signs Date Time Temp Pulse Resp B/P (MAP) Pulse Ox O2 Delivery O2 Flow Rate FiO2 11/07/20 12:29 Room Air 11/07/20 08:07 62 144/90 11/07/20 05:32 98.5 18 94 98.5 11/06/20 21:43 2.0 Physical Exam He has excellent alignment stability and early motion distal neurovascular status intact. He does have some bloody drainage at the very distal aspect of his incision Labs Laboratory Tests Test 11/06/20 08:21 11/07/20 06:30 Prothrombin Time 13.2 SEC (11.7-14.0) 16.2 SEC (11.7-14.0) Prothromb Time International Ratio 1.0 (0.8-1.1) 1.3 (0.8-1.1) Activated Partial Thromboplast Time 27 SEC (24-38) Hemoglobin 12.5 g/dL (13.0-17.5) Hematocrit 38.4 % (39.0-53.0) Mean Corpuscular Hemoglobin Concent 33 g/dL (31-37) Laboratory Tests Test 11/07/20 06:30 Hemoglobin 12.5 g/dL (13.0-17.5) Hematocrit 38.4 % (39.0-53.0) Mean Corpuscular Hemoglobin Concent 33 g/dL (31-37) Prothrombin Time 16.2 SEC (11.7-14.0) Prothromb Time International Ratio 1.3 (0.8-1.1) Imaging Postop view show excellent placement of a total knee arthroplasty on the right knee Assessment Assessment POD#1 right total knee arthroplasty Plan Plan of Care Continue mobilize with physical therapy weightbearing as tolerated Warfarin anticoagulation per pharmacy Likely home health placement on discharge versus outpatient physical therapy Justicifation of Admission Dx: Justifications for Admission: Justification of Admission Dx: N/A CHRISTIAN WRAY MD November 07, 2020 12:56
--- NOTE | 2020-11-07 13:33 | NUR ---
SW following. Discussed with RN, pt from home with , room air, regular diet. Pt had surgery 11/06/20. SW met with pt and pt's at bedside, they would like home health, have used [facility] before. Claudio Burkett RN notified. Choice of vendor form completed. RN notified. MARICEL will continue to follow. Addendum: 11/07/20 at 1334 by RONNIE CONNELLY Pt has a walker at home.
[2020-11-07] MEDS ORDERED: BISACODYL 10 MG SUPP.RECT. PR PRN (16:00)
[2020-11-07] MEDS ORDERED: WARFARIN 5 MG TABLET. PO ONE (16:00)
[2020-11-07 18:00] VITALS: BP 135/88
[2020-11-07] MEDS: ATORVASTATIN CALCIUM 20 MG TABLET PO SCH (20:53)
[2020-11-07] MEDS: LISINOPRIL 10 MG TABLET PO SCH (20:55)
[2020-11-08] MEDS: ACETAMINOPHEN 500 MG TABLET PO SCH ×3 (03:27→15:18)
[2020-11-08] MEDS: oxyCODONE IR 5 MG TABLET PO PRN ×3 (03:27→15:17)
[2020-11-08 06:06] VITALS: BP 129/81
[2020-11-08] MEDS: traMADol 50 MG TABLET PO SCH ×2 (06:08→12:22)
[2020-11-08] MEDS: MELOXICAM 7.5 MG TABLET PO SCH (08:07)
[2020-11-08] MEDS: FERROUS SULFATE 325 MG TABLET. PO SCH (08:07)
[2020-11-08] MEDS: SENNOSIDES/DOCUSATE 8.6/50MG TABLET. PO SCH (08:08)
[2020-11-08] MEDS: ASPIRIN ENTERIC COATED 81 MG TABLET.DR. PO SCH (08:08)
[2020-11-08] MEDS: MULTIVITAMIN with MINERAL TABLET. PO SCH (08:08)
[2020-11-08] MEDS ORDERED: OXYC5CAP PO (09:01)
[2020-11-08] MEDS ORDERED: TRAM50TA PO (09:01)
--- NOTE | 2020-11-08 09:03 | SNU/HH DC ---
DISCHARGE WITH HOME HEALTH DISCHARGE INFORMATION: Condition on Discharge: Stable CODE STATUS: Code Status: Full HOME HEALTH: Face to Face: I certify this patient is under my care and that I, or a nurse practitioner or physician's corporate administrative assistant working with me, had a face to face encounter that meets the physician face to face encounter requirements with this patient on [11/08/20]. Medical Complications: S/P Joint Replacement Care Home For: Assess/Skilled Observatio RN For Eval/Treatment: Yes Physical Therapy For: Evalulation/Treatment Pt Meets Homebound Status: Limited distance walking POST DISCHARGE ORDERS: Activity Instructions for Disc: Activity as tolerated, Progressive ambulation Weight Bearing Status after Di: Full weight bearing DIET AFTER DISCHARGE: Regular Wound/Incision Care: Ice to area for comfort, Keep wound elevated, Do not change dressing CHECKS AFTER DISCHARGE: Checks after discharge: Check blood press - daily FOLLOW-UP: Follow up with: Dr. Linares or Zina 2 weeks postop Warfarin Follow UP: [facility] to direct dosage and testing TREATMENT/EQUIPMENT ORDERS: Adaptive Equipment Issued: None, Front wheeled walker CERTIFICATION STATEMENT: Certification Statement: Certification Statement: Based on the above finding, I certify that this patient is confined to the home and needs intermittent correction care, physical therapy and/or speech therapy, or continues to need occupational therapy.~ This patient is under my care, and I have initiated the establishment of the plan of care.~ This patient will be followed by myself or a community physician who will periodically review the plan of care. Home Meds Reported Medications Meloxicam (MELOXICAM) 15 Mg Tablet, 1 TAB PO ONCE for pre op for 30 Days, TAB 0 Refills 11/06/20 Warfarin Sodium (WARFARIN SODIUM) 5 Mg Tablet, 5 MG PO ONCE for thinner, #30 TAB 11/06/20 Atorvastatin Calcium (ATORVASTATIN CALCIUM) 20 Mg Tablet, 20 MG PO HS for FOR CHOLESTEROL, #30 TAB 0 Refills 10/23/20 Meloxicam (MELOXICAM) 15 Mg Tablet, 15 MG PO DAILY for arthritis pain, TAB 04/25/19 Melatonin (MELATONIN) 3 Mg Tablet, 10 MG PO HS, TAB 11/26/17 Cholecalciferol (Vitamin D3) (VITAMIN D-3) 2,000 Unit Capsule, 2000 UNIT PO DAILY, CAP 11/26/17 Lisinopril (LISINOPRIL) 10 Mg Tablet, 1 TAB PO HS for HTN, #30 TAB 5 Refills 11/26/17 Diltiazem Hcl (CARDIZEM CD) 240 Mg Cap.er.24h, 240 MG PO DAILY for FOR HYPERTENSION, #30 CAP 0 Refills 02/01/16 Aspirin (ASPIR 81) 81 Mg Tablet.dr, 1 TAB PO DAILY08, #30 TAB 5 Refills LAST DOSE: 07/14/15 AM NEXT DOSE: 07/15/15 AM 02/19/15 CHRISTIAN LINARES MD November 08, 2020 09:03
--- NOTE | 2020-11-08 10:53 | NUR ---
Pharmacy Warfarin Dosing Note S:Pharmacy consulted to assist with anticoagulation therapy started 11/06/20 with target INR: 1.6 - 2.5 O:RISHI LIU is a 65 year old M with TKA LABS: Last INR: 2.1 Last HGB: 12.5 Last HCT: 38.4 Last PLT: Last dose of 5 mg given on 11/07/20 at 1703 Previous Regimen: Vitamin K given: Drug Interaction Changes: Ongoing Drug Interactions: A:INR of 2.1 is within desired range. Target range for this patient is: 1.6 - 2.5 P: Warfarin dose: 2 mg Prior to Discharge Bridge Therapy: None Next INR due November 12, Claudio Pharmacy anticoagulation service will continue to follow. SUZANNE BAILEY [facility], 11/08/20 [id number]
[2020-11-08 11:31] LABS: HEMATOCRIT 38.3 % (39.0-53.0); HEMOGLOBIN 12.7 g/dL (13.0-17.5)
--- NOTE | 2020-11-08 12:04 | NUR ---
SW following. Discussed with RN, discharge paperwork for home with home health. Claudio Burkett RN notified. No discharge order as of yet.
[2020-11-08] MEDS ORDERED: WARFARIN 2 MG TABLET. PO ONE (14:00)
[2020-11-08 15:00] VITALS: BP 121/88
--- NOTE | 2020-11-08 15:46 | NUR ---
Discharge instructions given with prescriptions to patient and . Answered questions and concerns. Both verbalized understanding. Extra dressing supplies given. Demonstrated on how to change dressing to pt's . Pt will be seen by home health nurse to evaluate and treat. Incision site drainage slowing down. Did not place JUSTINA dressing at this time. But did sent it home. Pt escorted out by w/c.
--- NOTE | 2020-11-08 18:15 | PATHOLOGY ---
[facility] Accession Number: [id number] . 01 Material submitted: . knee - RIGHT KNEE BONE. Modifiers: right . 01 Clinician provided ICD-10: M17.11 . 01 Clinical history: . PRIMARY OSTEOARTHRITIS OF RIGHT KNEE RIGHT TOTAL KNEE ARTHROPLASTY . 02 Diagnosis: Segments of bone and soft tissue, right total knee arthroplasty: - Degenerative arthritis. (JPM:didi; 11/08/2020) MBR 11/08/2020 1215 Local . 02 Electronically signed: . Jorge Sanders MD, Pathologist NPI- [id number] . 01 Gross description: . The specimen is received in formalin, labeled "Toi Pace Jr., right knee bone". Received are multiple segments of bone, including the tibial plateau, admixed with a slight amount of soft tissue measuring 10.9 x 9.3 x 3.7 cm in aggregate dimensions. The articular surfaces are smooth to granular in appearance with evidence of eburnation. The specimen is submitted representatively in cassette A1, following decalcification. ([facility]; 11/07/2020) QA/[facility] 11/07/2020 1039 Local . 02 Pathologist provided ICD-10: M17.11 . 02 CPT . 196752, [id number] Specimen Comment: A courtesy copy of this report has been sent to [phone], [phone] Specimen Comment: [id number] Specimen Comment: Report sent to / DR JIANG Performed at: 01 [facility] [address], [place], [place] [id number] MD Clay Saravia MD Phone: [phone] Performed at: 02 [facility] [address] [place], [place] [id number] MD Jorge Sanders MD Phone: [phone]
--- NOTE | 2020-11-09 15:12 | HP ---
CHIEF COMPLAINT: Right knee pain. HISTORY OF PRESENT ILLNESS: The patient has had ongoing right knee pain, previous injections, undergone by Dr. 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 PAST MEDICAL HISTORY: Significant for atrial fibrillation, status post an ablation, hypercholesterolemia, hypertension, tachycardia-bradycardia syndrome. PAST SURGICAL HISTORY: Rotator cuff repair, hip reconstruction, carpal tunnel, inguinal hernia, back surgeries, pacemaker implantation, total hip replacement, cataract surgery. FAMILY HISTORY: Hypertension and lung cancer in his mother. Father is alive and well. SOCIAL HISTORY: Denies smoking or drug use. Occasional alcohol consumption. He is with no children. ALLERGIES: He has no known drug allergies. REVIEW OF SYSTEMS: Negative for any recent chest pain, shortness of breath, focal weakness, numbness, tingling, recent febrile illness or other constitutional symptoms. PHYSICAL EXAMINATION: VITAL SIGNS: Per admission sheet. HEENT: Atraumatic, normocephalic. HEART: Regular rate and rhythm. LUNGS: Clear to auscultation bilaterally. ABDOMEN: Benign. MUSCULOSKELETAL: Examination of the right knee shows more medial than lateral joint line tenderness, slight varus. No gross ligamentous instability. Moderate patellofemoral crepitus. Mild joint line tenderness on the contralateral knee, well-healed incision from previous hip arthroplasty. Normal examination of the contralateral hip and bilateral ankles. X-rays show tricompartmental degenerative changes and varus in the right knee. IMPRESSION: Degenerative right knee. TREATMENT PLAN: I had gone over with him preoperatively in his visit with the patient, reviewed his x-ray results and we talked about the possibility of additional nonoperative management, the possibility of operative management with inherent risks, benefits, postoperative course of total knee arthroplasty including the possibility of infection, nerve or blood vessel damage, medical or other anesthetic complications, premature wear, loosening, among others and the general recovery process. All his questions were answered at that time and also reviewed today and he is going to undergo total knee arthroplasty with [facility] observation to follow. DERIC/GINNY DR: Rodolfo TID: [id number]
--- NOTE | 2020-11-10 08:25 | DS ---
DATE OF DISCHARGE: 11/08/2020 PRINCIPAL DIAGNOSIS: Degenerative arthritis, right knee. PROCEDURE: Right total knee arthroplasty. DISPOSITION: Home with home health. DISCHARGE MEDICATIONS: Include oxycodone 5 mg p.o. q. 4 hours p.r.n. severe pain, tramadol 50 mg p.o. q. 4 hours p.r.n. moderate pain, warfarin as directed by anticoagulation clinic at [facility]. Resume preoperative medications. Otherwise, wound care includes daily sterile dressing changes. BRIEF DESCRIPTION OF HOSPITAL COURSE: The patient underwent uncomplicated right total knee arthroplasty and was getting up and around well with physical therapy in terms of his ambulation, transfers, had good pain relief. He was noted to remain medically stable; however, had some bloody drainage from the distal aspect of his right knee wound and dressings were changed and rather than his original JUSTINA dressing, he was sent home with instructions for dressing changes and wound monitoring by home health. Followup scheduled for 2 weeks postoperatively unless he has other difficulties in the interim. MAISHA DR: Rodolfo TID: [id number]
== END 2020-11-08 15:46 | disposition home health service (06) ==
LOC: SURG 07:52 → 4 SOUTHEST 15:00
PROVIDERS: ADMIT Orthopaedic Surgery; ATTEND Orthopaedic Surgery
DX: M17.11 Unilateral primary osteoarthritis, right knee (principal); I10 Essential (primary) hypertension; I48.91 Unspecified atrial fibrillation; I49.5 Sick sinus syndrome; E78.00 Pure hypercholesterolemia, unspecified; Z96.649 Presence of unspecified artificial hip joint; Z96.651 Presence of right artificial knee joint
CPT/HCPCS: 27447; 36415; 73560; 85014; 85018; 85610; 85730; 86850; 86900; 86901; 88305; 88311; 96365; 96366; 96375; 97116; 97150; 97162; 97166; 97530; 97535; A4213; A4930; A6550; C1713; C1776; G0378; G0379; J0171; J0690; J0780; J1100; J1170; J1885; J2270; J2405; J2704; J2795; J3010; J3370

== ENCOUNTER 2021-03-18 08:48 | Day surgery (SDC) | payer OTHER ==
[~2021-03-18] VITALS: Ht 188 cm; Wt 98.6 kg
[~2021-03-18 08:48] MED LIST changes: -ACETAMINOPHEN 500 MG TABLET PO PRN; -GABAPENTIN 300 MG CAPSULE. PO PRN; -MELOXICAM 7.5 MG TABLET PO PRN; -MORPHINE SULFATE 5 MG, KETOROLAC 30MG VIAL 30 MG, ROPIVacaine 0.5% PF 60 ML, EPINEPHrin... INT ART ONE; +OXYC5CAP PO; -PROCHLORPERAZINE 10 MG/2 ML VIAL. IVP PRN; +TRAM50TA PO; -TRANEXAMIC ACID in NS IVPB 100 ML ONE; -TRANEXAMIC ACID in NS IVPB 50 ML INJ ONE; -VANCOMYCIN 1 GM VIAL. ONE; +WARF-31 PO; -fentaNYL PF VIAL 100 MCG/2 ML VIAL IVP PRN
[2021-03-18] MEDS ORDERED: PROPOFOL 10 MG/ML (20ML) VIAL. IV ONE (09:00)
[2021-03-18] MEDS ORDERED: LIDOCAINE 2% 100 MG/5 ML SYRINGE. ONE (09:00)
--- NOTE | 2021-03-18 09:16 | EKG ---
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
[2021-03-18 09:25] VITALS: BP 166/106
[2021-03-18] MEDS ORDERED: IBUP1TAB PO (09:32)
[2021-03-18 09:44] LABS: CALCIUM 8.8 mg/dL (8.5-10.1); CREATININE 0.8 mg/dL (0.7-1.3); GFR 96.4; POTASSIUM 3.7 mmol/L (3.5-5.1)
[2021-03-18 09:48] LABS: BASO # 0.1 x10^3/uL (0.0-0.2); BASO % 1 % (0-3); EOS # 0.1 x10^3/uL (0.0-0.7); EOS % 2 % (0-3); HEMATOCRIT 39.6 % (39.0-53.0); HEMOGLOBIN 13.5 g/dL (13.0-17.5); LYMPH # 1.7 x10^3/uL (1.0-4.8); LYMPH % 26 % (24-48); MEAN CORPUSCULAR HEMOGLOBIN 29 pg (25-35); MEAN CORPUSCULAR HGB CONC 34 g/dL (31-37); MEAN CORPUSCULAR VOLUME 84 fL (79-100); MONO # 0.6 x10^3/uL (0.0-1.1); MONO % 9 % (0-9); NEUT # 4.2 x10^3/uL (1.8-7.7); NEUT % 63 % (31-73); PLATELET COUNT 300 x10^3/uL (140-400); RED BLOOD COUNT 4.73 x10^6/uL (4.30-5.70); RED CELL DISTRIBUTION WIDTH 15.4 % (11.5-14.5); WHITE BLOOD COUNT 6.7 x10^3/uL (4.0-11.0)
[2021-03-18] MEDS ORDERED: APIX5TAB PO (09:55)
[2021-03-18] MEDS ORDERED: SOTA120T14 PO (09:57)
[2021-03-18] MEDS ORDERED: ALBUTEROL SULFATE 8GM INHALER. INH ONE (10:33)
--- NOTE | 2021-03-18 11:07 | PDOC4 ---
Procedure Note Procedure: External cardioversion Indications: Atrial flutter Complications: None Procedural Details: And informed consent was obtained from patient. Anesthesiology team gave intravenous propofol for deep sedation. Patient was then administered 200 J of synchronized biphasic DC shock therapy with successful conversion of patient rhythm to atrial sensed ventricular paced rhythm. He was hemodynamically stable without any neurological deficits at the end of procedure. He tolerated the procedure well. There were no immediate complications. Conclusions: Successful cardioversion of atrial flutter to A sensed V paced rhythm. DEREK NEWELL MD Mar 18, 2021 11:07
[2021-03-18 11:40] VITALS: BP 158/104
== END 2021-03-18 12:23 | disposition home or self-care (01) ==
LOC: SURG 08:48
PROVIDERS: ATTEND Internal Medicine Cardiovascular Disease
DX: I48.92 Unspecified atrial flutter (principal); I48.91 Unspecified atrial fibrillation; I10 Essential (primary) hypertension; E78.00 Pure hypercholesterolemia, unspecified; K21.9 Gastro-esophageal reflux disease without esophagitis; M19.90 Unspecified osteoarthritis, unspecified site; Z79.82 Long term (current) use of aspirin; Z79.899 Other long term (current) drug therapy; Z98.890 Other specified postprocedural states; Z72.89 Other problems related to lifestyle
CPT/HCPCS: 36415; 80048; 85025; 85610; 92960; 93005; J2704; J3490

== ENCOUNTER → 2021-09-20 | Outpatient (CLI) | payer OTHER ==
[~2021-09-20] MED LIST changes: +AMIO200T53 PO; -AMIO200T6 PO; +CLOP75TA PO; +IBUP1TAB PO; -IV RINGERS,LACTATED 1000ML 1,000 ML IV SCH; +MELA10TA PO; +SOTA120T14 PO; +tylenol pm PO
== END ==
LOC: LAB 10:04
PROVIDERS: ATTEND Internal Medicine Cardiovascular Disease
DX: Z01.812 Encounter for preprocedural laboratory examination (principal); Z20.822 Contact with and (suspected) exposure to COVID-19; I48.91 Unspecified atrial fibrillation
CPT/HCPCS: U0003

== ENCOUNTER 2021-09-23 08:59 | Day surgery (SDC) | payer OTHER ==
[~2021-09-23] VITALS: Ht 188 cm; Wt 13.0 kg
[~2021-09-23 08:59] MED LIST changes: -CLOP75TA PO; +HYDROmorphone 2 MG/ML INJ. IVP PRN; +IV RINGERS,LACTATED 1000ML 1,000 ML IV SCH; +MORPHINE SULFATE 2 MG/ML INJ. IVP PRN; +PROCHLORPERAZINE 10 MG/2 ML VIAL. IVP PRN; +fentaNYL PF VIAL 100 MCG/2 ML VIAL IVP PRN
[2021-09-23 09:37] VITALS: BP 157/94
[2021-09-23] MEDS ORDERED: CLOP75TA PO (09:51)
[2021-09-23] MEDS ORDERED: LIDOCAINE 2% TOPICAL JELLY 30GM TUBE. TP ONE (10:00)
[2021-09-23] MEDS ORDERED: LIDOCAINE 2% VISCOUS 15 ML SOLUTION. SWSW ONE (10:00)
[2021-09-23] MEDS ORDERED: BENZOCAINE ONE 20% MUCOSAL SPRAY. MM (10:00)
[2021-09-23] MEDS ORDERED: PHENYLEPHRINE in 0.9% NACL PF 1 MG/10 ML SYRINGE. IV ONE (10:24)
[2021-09-23] MEDS ORDERED: PROPOFOL 10 MG/ML (20ML) VIAL. IV ONE (10:25)
[2021-09-23 12:00] VITALS: BP 137/78
--- NOTE | 2021-09-23 14:14 | CARD ---
MR#: [id number] Date of Study: 09/23/2021 Ordering Physician: DEREK COX, Referring Physician: Benji MELARA: Scar Perdomo [facility] APPROVED REPORT EXAM: Transesophageal echocardiogram with color flow Doppler. INDICATION Atrial Fibrillation Evaluate ROLAND closure device. Reason For Test : Rule out cardiac source of emboli. PROCEDURE After obtaining informed consent, patient underwent transesophageal echo in the PACU. Type of Sedation : Conscious Sedation Sedation was achieved with Propofol 340 intravenously. Transesophageal probe was inserted and advanced into esophagus by Derek Cox MD. The LEVY was performed without complications. Throughout the procedure, the blood pressure, pulse oximetry, cardiac rhythm, and rate were monitored . The patient tolerated the procedure without adverse effects. Recovery from conscious sedation was une ventful and vital signs were stable. LEFT VENTRICLE The left ventricle is normal size. There is normal left ventricular wall thickness. The left ventricu lar systolic function is normal. The ejection fraction is 55-60%. There is normal LV segmental wall m otion. No left ventricle thrombus noted on this study. There is no ventricular septal defect visualiz ed. There is no left ventricular aneurysm. There is no mass noted in the left ventricle. RIGHT VENTRICLE The right ventricle is normal size. There is normal right ventricular wall thickness. The right ventr icular systolic function is normal. ATRIA The left atrium is mildly dilated. The right atrium size is normal. The interatrial septum is intact with no evidence for an atrial septal defect or patent foramen ovale as noted on 2-D or Doppler imagi ng. The left atrial closure device is well seated. AORTIC VALVE The aortic valve is normal in structure and function. The aortic valve is trileaflet. Doppler and Col or Flow revealed no significant aortic regurgitation. There is no significant aortic valvular stenosi s. There is no aortic valvular vegetation. MITRAL VALVE The mitral valve is thickened but opens well. There is no evidence of mitral valve prolapse. There is no mitral valve stenosis. Doppler and Color-flow revealed trace mitral regurgitation. TRICUSPID VALVE The tricuspid valve is normal in structure and function. Doppler and Color Flow revealed mild tricusp id regurgitation. There is no tricuspid valve prolapse or vegetation. There is no tricuspid valve gualberto nosis. PULMONIC VALVE The pulmonary valve is normal in structure and function. Doppler and Color Flow revealed no pulmonic valvular regurgitation. There is no pulmonic valvular stenosis. GREAT VESSELS The aortic root is normal in size. The ascending aorta is normal in size. The pulmonary artery is nor mal. The IVC is normal in size and collapses >50% with inspiration. PERICARDIAL EFFUSION There is no evidence of significant pericardial effusion. Critical Notification Critical Value: No <Conclusion> The left ventricular systolic function is normal. The ejection fraction is 55-60%. There is normal LV segmental wall motion. Amulet left atrial appendage closure device appears well seated without any thrombus. Trace mitral regurgitation. Mild tricuspid regurgitation. There is no evidence of significant pericardial effusion. Signed by : Derek Cox, Electronically Approved : 09/23/2021 14:14:22
== END 2021-09-23 12:15 | disposition home or self-care (01) ==
LOC: SURG 08:59
PROVIDERS: ATTEND Internal Medicine Cardiovascular Disease
DX: I48.91 Unspecified atrial fibrillation (principal); I07.1 Rheumatic tricuspid insufficiency; I10 Essential (primary) hypertension; E78.00 Pure hypercholesterolemia, unspecified; K21.9 Gastro-esophageal reflux disease without esophagitis; M19.90 Unspecified osteoarthritis, unspecified site; Z79.82 Long term (current) use of aspirin; Z79.899 Other long term (current) drug therapy; Z72.89 Other problems related to lifestyle; Z98.890 Other specified postprocedural states
CPT/HCPCS: 93312; 93325; J2370; J2704

== ENCOUNTER → 2021-09-27 | Outpatient (CLI) | payer OTHER ==
[2021-09-23 12:00] VITALS: BP 137/78
[~2021-09-27] MED LIST changes: +CLOP75TA PO; -HYDROmorphone 2 MG/ML INJ. IVP PRN; -IV RINGERS,LACTATED 1000ML 1,000 ML IV SCH; -MORPHINE SULFATE 2 MG/ML INJ. IVP PRN; -PROCHLORPERAZINE 10 MG/2 ML VIAL. IVP PRN; -fentaNYL PF VIAL 100 MCG/2 ML VIAL IVP PRN
[2021-09-27 11:41] LABS: BASO # 0.1 x10^3/uL (0.0-0.2); BASO % 1 % (0-3); EOS # 0.1 x10^3/uL (0.0-0.7); EOS % 3 % (0-3); HEMATOCRIT 38.7 % (39.0-53.0); HEMOGLOBIN 13.2 g/dL (13.0-17.5); LYMPH # 1.6 x10^3/uL (1.0-4.8); LYMPH % 30 % (24-48); MEAN CORPUSCULAR HEMOGLOBIN 29 pg (25-35); MEAN CORPUSCULAR HGB CONC 34 g/dL (31-37); MEAN CORPUSCULAR VOLUME 86 fL (79-100); MONO # 0.5 x10^3/uL (0.0-1.1); MONO % 9 % (0-9); NEUT % 57 % (31-73); PLATELET COUNT 329 x10^3/uL (140-400); RED BLOOD COUNT 4.52 x10^6/uL (4.30-5.70); RED CELL DISTRIBUTION WIDTH 13.6 % (11.5-14.5); WHITE BLOOD COUNT 5.3 x10^3/uL (4.0-11.0)
[2021-09-27 11:50] LABS: ALBUMIN 3.6 g/dL (3.4-5.0); ALBUMIN/GLOBULIN RATIO 0.9 (1.0-1.7); CALCIUM 9.1 mg/dL (8.5-10.1); CREATININE 0.7 mg/dL (0.7-1.3); TOTAL PROTEIN 7.6 g/dL (6.4-8.2)
[2021-09-27 11:51] LABS: C-REACTIVE PROTEIN 7.1 mg/L (0-3.3); GFR 112.1; POTASSIUM 3.7 mmol/L (3.5-5.1); TOTAL BILIRUBIN 0.5 mg/dL (0.2-1.0); URIC ACID 5.6 mg/dL (3.5-7.2)
[2021-09-27 11:52] LABS: CHOLESTEROL/HDL RATIO 3.6
[2021-09-28 01:17] LABS: HEMOGLOBIN A1C 5.9 % (4.8-5.6)
== END ==
LOC: LAB 11:02
PROVIDERS: ATTEND Family Medicine
DX: Z12.5 Encounter for screening for malignant neoplasm of prostate (principal); I10 Essential (primary) hypertension; R73.03 Prediabetes; E78.5 Hyperlipidemia, unspecified; M15.9 Polyosteoarthritis, unspecified
CPT/HCPCS: 36415; 80053; 80061; 83036; 84443; 84550; 85025; 85651; 86140; 86431; G0103

== ENCOUNTER → 2021-10-22 | Outpatient (CLI) | payer OTHER ==
[2021-09-23 12:00] VITALS: BP 137/78
--- NOTE | 2021-10-22 15:13 | RAD ---
EXAM: XR HAND 3 VIEWS 10/22/2021 11:59 AM CLINICAL INDICATION: Inflammatory arthritis COMPARISON: None TECHNIQUE: PA, oblique, and lateral views of the right and left hand FINDINGS: Left hand: No acute fracture. Alignment is normal. The bones appear demineralized. There are no erosi ons. Joint spaces are maintained. There is mild degenerative joint disease of the second and third DI P joints with small osteophytes. Small osteophytes at the third and fifth metacarpal heads. Mild dege nerative joint disease of the distal radioulnar joint Soft tissues normal. Right hand: No acute fracture. Alignment is normal. The bones appear demineralized. There are no eros ions. Mild joint space narrowing at the thumb IP joint. There are prominent osteophytes at the second and third DIP joints. Small osteophytes at the metacarpal heads. Mild degenerative joint disease at the distal radioulnar joint. Soft tissues normal. IMPRESSION: 1. No erosions. 2. Scattered mild osteoarthrosis bilaterally. Electronically signed by: Elizabeth Barreto MD (10/22/2021 3:11 PM) [id number]
== END ==
LOC: RAD 11:59
PROVIDERS: ATTEND Internal Medicine Rheumatology
DX: M19.042 Primary osteoarthritis, left hand (principal); M19.041 Primary osteoarthritis, right hand; M25.742 Osteophyte, left hand; M25.741 Osteophyte, right hand
CPT/HCPCS: 73130-50